=== PATIENT | male | born 1945 | race Caucasian/White ===

== ENCOUNTER 2018-06-24 13:02 | Inpatient (IN) | payer MEDICARE, MEDICAID ==
[2018-06-24] MEDS ORDERED: Morphine 4 MG/ML VIAL ONE ×2 (14:07→19:02)
--- NOTE | 2018-06-24 14:45 | RAD ---
AP PELVIS 1 VIEW: Date: 06/24/18 HISTORY: Pain following a fall. FINDINGS: There are bilateral hip joint arthrosis changes. There is some cortical irregularity involving the dias perolateral aspect of the left femur, at the base of the femoral head. I cannot exclude the possibili ty that this represents a nondisplaced fracture. There is also some lucency through the lesser trocha nter and also the greater trochanter, which could conceivably represent nondisplaced fractures. The p dagmar proper appears intact. IMPRESSION: Bilateral hip joint arthrosis. Pelvis bony demineralization. Some irregular lucencies through the reg ion of the proximal left femur, including the femoral neck and intertrochanteric region, raising conc femi for fractures. Follow-up left hip CT scan is recommended for further assessment in this regard. POS: [facility]
--- NOTE | 2018-06-24 14:53 | RAD ---
2 VIEWS LEFT HIP: Date: 06/24/18 HISTORY: Left hip pain after a fall today. FINDINGS: There is left hip osteoarthritis. There is irregularity along the superior cortex of the femoral neck with lucency seen in the intertrochanteric region of left hip. A nondisplaced fracture cannot be exc luded based on this examination. Given patient's recent injury and severe hip pain, CT scan is recomm ended for confirmation of question fracture. There is no dislocation seen. Degenerative changes seen in the visualized lower lumbar spine. Vascular calcifications in the femoral arteries. IMPRESSION: Lucency overlying the intertrochanteric region left hip. A nondisplaced intertrochanteric left hip fr acture is a possibility, and there is also irregularity in the region of the femoral neck. CT scan le ft hip is recommended for further evaluation. Above findings discussed with RAMANDEEP Hood, in the emergency department on 06/24/18 at 1423 hour s. CODE CR. POS: [facility]
--- NOTE | 2018-06-24 14:55 | CT ---
LEFT HIP CT SCAN WITHOUT IV CONTRAST: Date: 06/24/18 HISTORY: Left hip pain with concern for fracture on plain film evaluation. FINDINGS: There are fractures involving the left femoral neck, including the subcapital region, and also extend ing into the intertrochanteric region, without significant displacement. Arthrosis and degenerative c hanges of the left hip joint. Bony demineralization. IMPRESSION: Proximal left femoral fracture/fractures including the femoral neck and extending into the intertroch anteric region without significant malalignment. POS: [facility]
[2018-06-24 15:13] LABS: #Eosinphils 0.1 thou/uL (0.0-0.7); #Lymphocytes 1.1 thou/uL (1.20-3.40); #Monocytes 0.5 thou/uL (0.11-0.59); #Neutrophils 11.5 thou/uL (1.40-6.50); %Basophils 0.1 % (0.0-1.0); %Eosinophils 0.7 % (0.0-10.0); %Lymphocytes 8.2 % (21.0-51.0); %Monocytes 4.1 % (0.0-10.0); %Neutrophils 86.9 % (42.0-75.0); Hemoglobin 11.7 g/dL (14.0-18.0); Mean Corpuscular HGB CONC 33.4 g/dL (32.0-36.0); Mean Corpuscular Hemoglobin 30.7 pg (27.0-31.0); Mean Platelet Volume 8.9 fL (7.4-10.4); Platelet Count 141 thou/uL (130-400); RBC Distribution Width 12.2 % (11.5-14.5); Red Blood Cell (RBC) Count 3.81 mill/uL (4.70-6.10); White Blood Cell (WBC) Count 13.2 thou/uL (4.8-10.8)
[2018-06-24 15:33] LABS: ALT (SGPT) 10 U/L (8-55); AST (SGOT) 12 U/L (5-34); Alkaline Phosphatase 62 U/L (40-150); Anion Gap 15 mmol/L (10-20); BUN (Urea Nitrogen) 19 mg/dL (8.4-25.7); Bilirubin, Total Less than 0.2 mg/dL (0.2-1.2); Calc. Creatinine Clearance 0 mL/min (70-130); Calcium 8.6 mg/dL (7.8-10.44); Carbon Dioxide 23 mmol/L (23-31); Chloride 104 mmol/L (98-107); Estimated GFR-MDRD Greater than 90; Globulin 2.8 g/dL (2.4-3.5); Glucose 105 mg/dL (83-110); Potassium 4.4 mmol/L (3.5-5.1); Protein, Total 6.8 g/dL (5.8-8.1); Sodium 138 mmol/L (136-145)
--- NOTE | 2018-06-24 15:48 | RAD ---
PORTABLE CHEST ONE VIEW: Date: 06-24-18 Time: 2:47 p.m. History: Pre-operative evaluation. FINDINGS: The heart size is normal. There is a left sided pacemaker device. No focal areas of consolidation, pn eumothoraces or pleural effusions are seen. IMPRESSION: No radiographic evidence of acute cardiopulmonary process. POS: [facility]
[2018-06-24] MEDS ORDERED: Fentanyl 100 MCG/2 ML VIAL ONE (16:06)
[2018-06-24] MEDS ORDERED: Dextrose 50% Abboject 50 ML SYRINGE SLOW IVP PRN (16:47)
[2018-06-24] MEDS ORDERED: traMADol HCl 50 MG TAB PO PRN (16:47)
[2018-06-24] MEDS ORDERED: hydrALAZINE 20 MG/ML VIAL SLOW IVP PRN (16:47)
[2018-06-24] MEDS ORDERED: Ondansetron PF 4 MG/2 ML Vial IVP PRN (16:47)
[2018-06-24] MEDS ORDERED: Dextrose 5% in Water 1,000 ML IV PRN (16:47)
[2018-06-24 17:01] VITALS: BMI 28.4
--- NOTE | 2018-06-24 18:44 | HP ---
TRAUMA SURGEON: Ebenezer Kendrick DO. CONSULTING PHYSICIAN: Dr. Sosa, Orthopedic Surgery. HISTORY OF PRESENT ILLNESS: Mr. Olivera is a 73-year-old male patient, who presented to the emergency department after a mechanical fall from standing at his nursing facility. He is not on any anticoagulation and denies loss of consciousness. He reports using the table to stand up from a seated position. At that time, the table started to roll away and he fell onto his left side. He denies striking his head. He was brought to the emergency department for evaluation, where he received an x-ray of the left hip, x-ray of the pelvis, CT of the left lower extremity as well as a chest x-ray. His imaging demonstrated that he had a left femoral neck fracture. Dr. Sosa with Orthopedic Surgery was consulted, who recommended the patient be taken to the OR tomorrow. Trauma Surgery was consulted for admission and medical management of the patient. The patient denies loss of consciousness, nausea, vomiting, and diarrhea. REVIEW OF SYSTEMS: All additional review of systems was negative except as indicated in the HPI. PAST MEDICAL HISTORY: Diabetes, CHF, and a pacemaker. PAST SURGICAL HISTORY: Pacemaker placement. SOCIAL HISTORY: The patient denies tobacco, alcohol, and drug abuse. MEDICATIONS: 1. Lactobacillus acidophilus. 2. Aspirin. 3. Digoxin. 4. Ditropan. 5. Glipizide. 6. Januvia. 7. Ranitidine. 8. Risperdal. 9. Bisacodyl. 10. Colace. 11. Depakote. 12. Lantus. 13. Mag-Ox. 14. NovoLog. 15. MiraLAX. 16. Primidone. 17. Gabapentin. 18. Simvastatin. 19. Sinemet. 20. Zoloft. ALLERGIES: THE PATIENT IS ALLERGIC TO MUSHROOMS, PORK, AND PENICILLIN. PHYSICAL EXAMINATION: VITAL SIGNS: Temperature 98.7, pulse 84, respirations 14, oxygen saturation 95 % on room air, blood pressure 164/68. PRIMARY ASSESSMENT: Airway intact. Adequate breath sounds bilaterally. 2+ distal pulses palpable in the radials, femorals, and DP/PT bilaterally. GCS is 15. Gross motor and sensation intact. No lacerations, bruising, or external bleeding. SECONDARY ASSESSMENT: HEAD: Normocephalic, atraumatic. No gross palpable neck deformities or tenderness. EYES: Pupils are 3 to 2, equal, round, reactive to light, tracking. ENT: No hemotympanum, no epistaxis, no septal hematoma. Midface is stable to palpation. No blood in the oropharynx. Dentition intact. No anterior neck injury/crepitus/tenderness. C-SPINE: No step-offs or deformities, nontender, no C-collar in place. CHEST: Nontender, no crepitus, no abrasions/ecchymoses. Equal chest rise and fall. ABDOMEN: Soft, nontender, nondistended. PELVIS: Stable. Nontender. No abrasions/ecchymoses. RECTAL: Deferred. GENITOURINARY: Deferred. EXTREMITIES: Left lower extremity shortened and rotated. No abrasions or ecchymosis noted. No external signs of bleeding. 2+ radial/femoral/DP/PT pulses present bilaterally. BACK/SPINE: No step-offs/deformities or tenderness to palpation of the thoracic/lumbar spine. No abrasions/ecchymosis noted. NEURO: 5/5 strength in bilateral strategic sourcing specialist and plantar/dorsiflexion of the right lower extremity, 4/5 strength in the left lower extremity. Gross motor and sensation intact x4 extremities. LABORATORY DATA: White blood cell count 13.2, hemoglobin 11.7, hematocrit 35.0, platelets 141. Sodium 138, potassium 4.4, chloride 104, carbon dioxide 23, BUN 19, creatinine 0.86, glucose 105. DIAGNOSTIC DATA: Chest x-ray demonstrates no radiographic evidence of acute cardiopulmonary process. X-ray of the left hip demonstrates overlying the intertrochanteric region of the left hip, a nondisplaced intertrochanteric left hip fracture is a possibility and there is also irregularity on the region of the femoral neck. CT scan left hip is recommended for further evaluation. X-ray of the pelvis demonstrates bilateral hip joint arthrosis, pelvis bony demineralization. Some irregularity lucencies through the region of the proximal left femur including the femoral neck and the intertrochanteric region, rising concern for fracture. Followup left hip CT scan is recommended for further assessment in this region. CT scan of the left lower extremity demonstrates proximal left femoral fracture/fractures involving the femoral neck and extending into the intertrochanteric region without significant malalignment. ASSESSMENT: 1. Status post mechanical fall from standing. 2. Left femoral neck/intertrochanteric fracture. 3. Acute traumatic pain. 4. History of congestive heart failure, pacemaker, and diabetes. PLAN: The patient will be admitted to the Trauma Service and Dr. Sosa with Orthopedic Surgery will take the patient to the operating room tomorrow. We will start the patient on pain medication regimen and give him a diabetic diet. After midnight, he will be n.p.o. We will hold all of his home medications except for digoxin, which will be restarted with hold parameters in the morning. He will receive insulin sliding scale for glucose control. DVT prophylaxis will be held for the OR. Physical and Occupational Therapy have been consulted and will see the patient after fixation of the left femur. The patient was seen and examined by Dr. Kendrick and myself this afternoon in the emergency department. Job ID: [id number] MTDD
[2018-06-24] MEDS: Morphine 4 MG/ML VIAL SLOW IVP PRN ×2 (19:06→21:26)
[2018-06-24] MEDS ORDERED: Acetaminophen 500 MG TAB ONE ×2 (19:09→19:15)
[2018-06-24] MEDS: Acetaminophen 500 MG TAB PO SCH ×2 (19:10→20:53)
[2018-06-24] MEDS: Famotidine 20 MG TAB PO SCH (21:27)
[2018-06-24] MEDS: Senokot S 8.6-50 MG TAB PO SCH (21:27)
[2018-06-24] MEDS ORDERED: Carbidopa/Levodopa CR 50-200 mg Tablet PO SCH (22:30)
--- NOTE | 2018-06-25 01:03 | CON ---
DATE OF CONSULTATION: CHIEF COMPLAINT: Left hip pain. HISTORY OF PRESENT ILLNESS: Mr. Olivera is a 73-year-old male who lives in a nursing facility. He reports that over the last three months he has lost the ability to ambulate any distance. He does arise out of bed and transfers himself to a chair, but this is minimal as well. He requires assistance. He has not been working with physical therapy lately. He lost his balance when transferring today. He fell. He landed on his left side. He had immediate pain. He was unable to arise. He was taken to the emergency department by EMS. X-rays were obtained as well as a CT scan which demonstrated intertrochanteric fracture of the left femur with extension into the femoral neck. He has been given pain medication. I was consulted regarding his hip injury. PAST MEDICAL HISTORY: Includes anxiety and depression, diabetes, hyperlipidemia, peptic ulcer disease, osteoarthritis, and history of dementia as well as generalized deconditioning. PAST SURGICAL HISTORY: Includes previous left shoulder arthroscopic surgery and cataract surgery. He has also had cardiac ablation type procedure in 2012. SOCIAL HISTORY: The patient lives in [facility]. He denies any tobacco, alcohol, or drug use. ALLERGIES: NO KNOWN DRUG ALLERGIES. FAMILY MEDICAL HISTORY: Noncontributory. REVIEW OF SYSTEMS: Positive for left hip pain. Otherwise, negative 10 point review of systems. PHYSICAL EXAMINATION: VITAL SIGNS: Temperature is 98.7, pulse is 84, respiratory rate 14, oxygen saturation 95% on room air, blood pressure is 164/68. GENERAL: He is lying supine. He is alert. He is oriented, in no apparent distress. He answers questions appropriately. HEENT: Normocephalic and atraumatic. RESPIRATORY: Breathing comfortably. ABDOMEN: Soft, nontender, nondistended. CARDIOVASCULAR: Pulses palpable and regular. MUSCULOSKELETAL: The patient's left lower extremity has pain with motion. He has swelling about his thigh. He has no skin laceration. No significant ecchymosis. He has the ability to flex and extend the foot and ankle. Palpable pulses distally. LABORATORY STUDIES: Hemoglobin 11.7, hematocrit 35.0. Electrolytes are within normal limits. IMAGING: CT scan and left hip x-rays demonstrate intertrochanteric femur fracture with extension into the base cervical region of the femoral neck. Fracture is nondisplaced. IMPRESSION: Left intertrochanteric femur fracture in an elderly male. PLAN: At this point, I had a long discussion with the patient regarding his treatment options. He is essentially nonambulatory, although he does get out of bed to transfer to a chair. He has been deconditioned over the last several months. I gave him the option of surgical intervention for pain relief and to hopefully allow him to mobilize out of bed with assistance versus nonoperative treatment. He wants to pursue operative treatment if this is deemed reasonable risk so that he can have pain relief as well as earlier mobilization. I think this is reasonable. I think he would experience decreased pain with stabilization of his fracture. I will plan for this tomorrow. He will have medical optimization tonight. Pain control, DVT prophylaxis, and antibiotic prophylaxis. Job ID: [id number]
[2018-06-25] MEDS: Morphine 4 MG/ML VIAL SLOW IVP PRN ×3 (01:22→07:07)
[2018-06-25] MEDS: Acetaminophen 500 MG TAB PO SCH ×2 (04:43→18:24)
[2018-06-25 06:20] LABS: INR-International Normal Ratio 1.1; PTT 34.1 SEC (22.9-36.1); Prothrombin Time 13.9 SEC (12.0-14.7)
[2018-06-25 06:27] LABS: #Eosinphils 0.1 thou/uL (0.0-0.7); #Lymphocytes 2.4 thou/uL (1.20-3.40); #Monocytes 0.8 thou/uL (0.11-0.59); #Neutrophils 6.9 thou/uL (1.40-6.50); %Basophils 0.2 % (0.0-1.0); %Eosinophils 0.9 % (0.0-10.0); %Lymphocytes 23.4 % (21.0-51.0); %Monocytes 7.9 % (0.0-10.0); %Neutrophils 67.7 % (42.0-75.0); Hemoglobin 12.3 g/dL (14.0-18.0); Mean Corpuscular HGB CONC 33.4 g/dL (32.0-36.0); Mean Corpuscular Hemoglobin 30.9 pg (27.0-31.0); Mean Corpuscular Volume 92.4 fL (78.0-98.0); Mean Platelet Volume 8.7 fL (7.4-10.4); Platelet Count 158 thou/uL (130-400); RBC Distribution Width 12.4 % (11.5-14.5); Red Blood Cell (RBC) Count 3.99 mill/uL (4.70-6.10); White Blood Cell (WBC) Count 10.1 thou/uL (4.8-10.8)
[2018-06-25 06:36] LABS: BUN (Urea Nitrogen) 14 mg/dL (8.4-25.7); Calc. Creatinine Clearance 110 mL/min (70-130); Calcium 9.4 mg/dL (7.8-10.44); Chloride 102 mmol/L (98-107); Estimated GFR-MDRD Greater than 90; Magnesium 2.1 mg/dL (1.6-2.6); Phosphorus 4.2 mg/dL (2.3-4.7); Potassium 4.1 mmol/L (3.5-5.1); Sodium 139 mmol/L (136-145)
[2018-06-25 06:40] LABS: Carbon Dioxide 26 mmol/L (23-31)
[2018-06-25 06:42] LABS: Anion Gap 15 mmol/L (10-20); Glucose 47 mg/dL (83-110)
[2018-06-25] MEDS ORDERED: Dextrose 5 %-0.45 % NaCl 1,000 ML IV SCH (07:00)
[2018-06-25] MEDS ORDERED: Polyethylene Glycol 3350 17 GM Packet PO SCH (09:00)
[2018-06-25] MEDS ORDERED: PHENYLEPHRINE-NS 100 MCG/ML 10 ML SYRINGE ONE (10:17)
[2018-06-25] MEDS ORDERED: Succinylcholine Chloride 20 MG/ML 10 ml SYRINGE FS ONE (10:17)
[2018-06-25] MEDS ORDERED: PROPOFOL 200 MG/20 ML VIAL ONE (10:17)
[2018-06-25] MEDS ORDERED: Ondansetron PF 4 MG/2 ML Vial ONE (10:17)
[2018-06-25] MEDS ORDERED: Lidocaine 1% PF 5 ML VIAL ONE (10:17)
[2018-06-25] MEDS: Digoxin 0.125 MG TAB PO SCH (10:33)
[2018-06-25] MEDS ORDERED: Ketorolac Tromethamine 30 MG/ML VIAL ONE (11:16)
[2018-06-25] MEDS ORDERED: Ketorolac Tromethamine 15 MG/ML VIAL IVP ONE (11:17)
[2018-06-25] MEDS ORDERED: Ketorolac Tromethamine 15 MG/ML VIAL IVP PRN (11:17)
[2018-06-25] MEDS: Senokot S 8.6-50 MG TAB PO SCH ×2 (11:25→21:59)
[2018-06-25] MEDS: Gabapentin 300 MG CAP PO SCH ×2 (11:26→21:59)
[2018-06-25] MEDS: Carbidopa/Levodopa CR 50-200 mg Tablet PO SCH ×4 (11:26→21:52)
[2018-06-25] MEDS: Divalproex Sodium 125 mg Sprinkle Capsule PO SCH ×2 (11:26→21:55)
[2018-06-25] MEDS: Famotidine 20 MG TAB PO SCH ×2 (11:26→21:59)
[2018-06-25] MEDS: Acetaminophen 1,000 MG in Premix Bag 1 BAG IVPB SCH ×2 (11:27→17:37)
[2018-06-25] MEDS ORDERED: Ketorolac Tromethamine 30 MG/ML VIAL IVP SCH (11:30)
[2018-06-25] MEDS ORDERED: Ketorolac Tromethamine 15 MG/ML VIAL IVP SCH (12:00)
[2018-06-25] MEDS ORDERED: Clindamycin/D5W 900 MG in Premix Bag 1 BAG IVPB SCH (12:00)
[2018-06-25] MEDS ORDERED: Clindamycin/D5W 900 mg/50 ml Premix Bag ONE (12:20)
[2018-06-25] MEDS ORDERED: CEFAZOLIN 2 GM/50 ML BAG IVPB SCH (13:00)
[2018-06-25] MEDS ORDERED: Fentanyl 100 MCG/2 ML VIAL ONE ×2 (13:04→15:06)
--- NOTE | 2018-06-25 13:21 | RAD ---
LEFT FOOT 3 VIEWS: INDICATION: Fall with leg pain. FINDINGS: There is diffuse osteopenia. There is surface artifact from overlying socks that limits detail. The re is scattered osteoarthrosis of the left foot. The toes are held in flexion slightly limiting the exam. No definite acute fracture is evident. IMPRESSION: Limitation of exam. No definite acute osseous abnormality. POS: [facility]
--- NOTE | 2018-06-25 13:34 | PRG ---
DATE OF SERVICE: 06/25/2018 SUBJECTIVE: The patient is a 73-year-old male who reported after a mechanical fall from standing with a left femoral neck and intercurrent trochanteric femur fracture. He was admitted to the hospital yesterday evening. This morning on examination, he reported significant pain and was lying on his right side. He reported he had not received pain medications for several hours, although he had requested medication from nursing. At that time, the patient received IV Tylenol and IV Toradol per the instructions of Dr. Kendrick. He is n.p.o. for the OR today with Dr. Sosa, Orthopedic Surgery. On a tertiary exam, he reported he had tenderness to the anterior surface of the left foot. There were no external signs of trauma. Overnight, he did have an episode of hypoglycemia with a glucose of 74. He did not have IV access at that time and received an IM Glucagon shot and his glucose increased to 70. At that time, D5 half-normal saline at 75 an hour was started. PHYSICAL EXAMINATION: VITAL SIGNS: Temperature 97.5, pulse 85, respirations 18, oxygen saturation 95% . Blood pressure 121/73. GENERAL: Alert, elderly male, lying on the right side with signs of distress. NEURO: GCS is 15. Alert and oriented x3. Gross motor and sensation intact. Pupils equal, round, reactive to light. PULMONARY: No signs of acute distress. Equal chest rise and fall. Lung jeronimo clear bilaterally. HEART: Regular rate and rhythm. No murmurs, gallops, or rubs. ABDOMEN: Soft, nontender, nondistended with positive bowel sounds. EXTREMITIES: Motor and sensation intact. 2+ pulses in all extremities. No swelling noted. Pain to left lateral thigh and hip as well as tenderness to palpation over the anterior aspect of the left foot. No other external signs of trauma. LABORATORY FINDINGS: White blood cell count 10.1, hemoglobin 12.3, hematocrit 36.9, platelets 158. INR 1.1. Sodium 138, potassium 4.1, chloride 102, carbon dioxide 26, BUN 14, creatinine 0.78, glucose 97, phos 4.2, magnesium 2.1. DIAGNOSTIC FINDINGS: There are no diagnostic findings to report at this time, but an x-ray of the left foot is pending. ASSESSMENT: 1. Status post mechanical fall from standing. 2. Left femoral neck/intertrochanteric femur fracture. 3. Acute traumatic pain. 4. History of congestive heart failure, pacemaker, and diabetes. PLAN: The patient was scheduled for 1 g of IV Tylenol q.6 hours. He also has tramadol p.r.n. for pain as well as morphine for breakthrough pain. He can get ibuprofen for mild pain. He is pending OR today with Dr. Sosa for fixation of his left femur fracture. He is still n.p.o. with D5 half-normal saline at 75 an hour. We will follow up x-ray of left foot for injury. Will receive physical and occupational therapy, postoperatively, home gabapentin, oxybutynin, Sinemet, Depakote, Risperdal, Zoloft, and simvastatin were restarted preoperatively. The patient was seen and examined by Dr. Kendrick and myself this morning during rounds. Job ID: [id number] MTDD
[2018-06-25] MEDS ORDERED: Ondansetron HCl/PF 4 MG/2 ML Vial IVP PRN (14:35)
[2018-06-25] MEDS ORDERED: Promethazine HCl 25 MG/ML VIAL IM PRN (14:35)
[2018-06-25] MEDS ORDERED: Promethazine HCl 25 MG/ML VIAL SLOW IVP PRN (14:35)
--- NOTE | 2018-06-25 15:27 | OP ---
DATE OF PROCEDURE: 06/25/2018 PROCEDURE PERFORMED: Dynamic hip screw fixation of left proximal femur. PREOPERATIVE DIAGNOSIS: Left intertrochanteric femur fracture. POSTOPERATIVE DIAGNOSIS: Left intertrochanteric femur fracture. COMPLICATIONS: None. ESTIMATED BLOOD LOSS: 200 mL. LOGISTICS/SHIPPER: Asa Jama PA-C. IMPLANTS: Synthes 4-hole 140 degree dynamic hip screw and plate. INDICATIONS: Mr. Olivera is a 73-year-old male, who fell. He fractured his left proximal femur. He was indicated for stabilization of the fracture for pain relief. The patient transfers from the bed but minimally ambulates. Main goal of surgery is not to promote ambulation but for pain relief. I have reviewed this with him in detail. He is at risk for complications with surgery. He wants to proceed. DESCRIPTION OF PROCEDURE: Mr. Olivera was identified in the preoperative holding area. His correct extremity was marked. He was carried to the operating room. He was positioned supine. General anesthesia was induced. A multidisciplinary time-out was performed. The left lower extremity was prepped and draped in sterile fashion. We placed the patient on the fracture table. At this point, his left hip was evaluated with intraoperative x-ray. We pulled gentle traction on the leg and the fracture was well reduced. At this point, we began the procedure with a lateral incision. We dissected down through the subcutaneous tissues to the bony level. We then inserted a guidewire to the center position of the femoral head. At this point, we overdrilled the guidewire. We then placed our central screw. Next, we impacted a 4-hole DHS plate. Four screws were placed in the plate through the shaft of the bone. Took final x-ray images in orthogonal planes. We then thoroughly irrigated and closed with 0 Vicryl suture, 2-0 Vicryl suture, and adrian for the skin. A sterile dressing was applied. The patient was taken to the recovery room in good condition without complication. Job ID: [id number]
--- NOTE | 2018-06-25 15:37 | RAD ---
LEFT HIP 3 VIEWS: INDICATION: History of left hip fracture. FLUOROSCOPIC TIME: 76.7 seconds. TOTAL EXPOSURE: 11.84 mGy. FINDINGS: Since the comparison examination, there has been reduction and placement of a hip screw and side plat e across the patient's left basicervical femoral neck/intratrochanteric hip fracture. IMPRESSION: Open reduction internal fixation of the left hip. POS: [facility]
[2018-06-25] MEDS ORDERED: OXYBUTYNIN CHLORIDE 10 MG PO SCH (21:00)
[2018-06-25] MEDS ORDERED: Non-Formulary Item 1 EACH (Simvastatin [Simvastatin] 80 MG) PO SCH (21:00)
[2018-06-25] MEDS: Atorvastatin Calcium 20 MG TAB PO SCH (21:46)
[2018-06-25] MEDS: risperiDONE 0.25 MG TAB PO SCH (21:57)
[2018-06-25] MEDS: Oxybutynin ER 5 MG TAB PO SCH (21:58)
[2018-06-25] MEDS: traMADol HCl 50 MG TAB PO PRN (22:13)
[2018-06-25] MEDS: Clindamycin/D5W 900 MG in Premix Bag 1 BAG IVPB SCH (22:26)
[2018-06-26] MEDS: Clindamycin/D5W 900 MG in Premix Bag 1 BAG IVPB SCH (06:18)
[2018-06-26] MEDS: Acetaminophen 1,000 MG in Premix Bag 1 BAG IVPB SCH ×2 (06:18)
[2018-06-26] MEDS: Ibuprofen 600 MG TAB PO PRN (06:48)
[2018-06-26 07:02] LABS: #Eosinphils 0.1 thou/uL (0.0-0.7); #Lymphocytes 1.5 thou/uL (1.20-3.40); #Monocytes 0.8 thou/uL (0.11-0.59); #Neutrophils 6.8 thou/uL (1.40-6.50); %Basophils 0.1 % (0.0-1.0); %Eosinophils 1.3 % (0.0-10.0); %Monocytes 8.2 % (0.0-10.0); %Neutrophils 74.5 % (42.0-75.0); Hemoglobin 9.8 g/dL (14.0-18.0); Mean Corpuscular HGB CONC 33.7 g/dL (32.0-36.0); Mean Corpuscular Volume 91.9 fL (78.0-98.0); Mean Platelet Volume 8.8 fL (7.4-10.4); Platelet Count 132 thou/uL (130-400); RBC Distribution Width 12.3 % (11.5-14.5); Red Blood Cell (RBC) Count 3.15 mill/uL (4.70-6.10); White Blood Cell (WBC) Count 9.2 thou/uL (4.8-10.8)
[2018-06-26 07:26] LABS: Anion Gap 13 mmol/L (10-20); BUN (Urea Nitrogen) 15 mg/dL (8.4-25.7); Calc. Creatinine Clearance 97 mL/min (70-130); Calcium 8.6 mg/dL (7.8-10.44); Carbon Dioxide 26 mmol/L (23-31); Chloride 100 mmol/L (98-107); Estimated GFR-MDRD 84; Glucose 142 mg/dL (83-110); Magnesium 1.9 mg/dL (1.6-2.6); Potassium 4.5 mmol/L (3.5-5.1); Sodium 134 mmol/L (136-145)
[2018-06-26] MEDS: Famotidine 20 MG TAB PO SCH ×2 (09:28→21:40)
[2018-06-26] MEDS: Divalproex Sodium 125 mg Sprinkle Capsule PO SCH ×2 (09:28→21:36)
[2018-06-26] MEDS: Aspirin 81 mg Enteric Coated Tablet PO SCH ×2 (09:28→21:40)
[2018-06-26] MEDS: Gabapentin 300 MG CAP PO SCH ×2 (09:29→21:36)
[2018-06-26] MEDS: Carbidopa/Levodopa CR 50-200 mg Tablet PO SCH ×4 (09:29→21:39)
[2018-06-26] MEDS: Digoxin 0.125 MG TAB PO SCH (09:30)
[2018-06-26] MEDS: Senokot S 8.6-50 MG TAB PO SCH ×2 (09:30→21:36)
[2018-06-26] MEDS: Polyethylene Glycol 3350 17 GM Packet PO SCH (09:37)
[2018-06-26] MEDS ORDERED: Sodium Chloride 0.9% 500 ML IV SCH (10:45)
--- NOTE | 2018-06-26 12:15 | PRG ---
DATE OF SERVICE: 06/26/2018 SUBJECTIVE: The patient is hospital day 2, postop day 1, status post ground level fall, in which he sustained a left femoral neck fracture. The patient has undergone operative procedure by Orthopedics to repair this. He tolerated it well. This morning, it was noted that he had an episode of hypotension when working with Physical and Occupational therapy, so he was given 500 mL bolus of normal saline. Otherwise, he had an uneventful night. His pain is controlled and he has tolerated a diet this morning. PHYSICAL EXAMINATION: VITAL SIGNS: Temperature is 99.6, heart rate 93, blood pressure 81/58, respirations 18, oxygen saturation 93% on room air. GENERAL: The patient is resting comfortably in bed. He appears at his baseline and is appropriate. HEENT: Unremarkable. LUNGS: Clear to auscultation with good inspiratory and expiratory effort. HEART: Regular rate and rhythm. ABDOMEN: Soft, flat, nontender with active bowel sounds. EXTREMITIES: Neurovascularly intact x4. Postop dressing is clean, dry, and intact. LABORATORY FINDINGS: White blood cell count 9.2, hemoglobin 9.8, hematocrit 29.0, platelets 132. Sodium 134, potassium 4.5, chloride 100, CO2 of 26, BUN 15, creatinine 0.89, glucose 142, magnesium 1.9, phosphorus 5.0. There are no x-rays to review this morning. ASSESSMENT: 1. Status post mechanical fall. 2. Status post open reduction and internal fixation of left hip fracture. 3. Acute blood loss anemia. 4. History of congestive heart failure, pacemaker, and diabetes. PLAN: Plan will be to continue supportive care, physical and occupational therapy. We will recheck his vitals after his bolus and repeat his labs in the morning. The patient will likely be able to return to his facility tomorrow, Saturday at the latest. Job ID: [id number]
[2018-06-26] MEDS: Acetaminophen 500 MG TAB PO SCH ×3 (12:48→23:55)
[2018-06-26] MEDS: HumaLOG 300 UNITS/3 ML VIAL SC PRN ×2 (12:49→18:21)
--- NOTE | 2018-06-26 15:55 | PQF ---
HYVL,ALPA RUDOLPH MD [id number] SURG A- [id number] CLINICAL DOCUMENTATION IMPROVEMENT CLARIFICATION FORM: ICD-10 Updated PLEASE DO AN ADDENDUM TO THE PROGRESS NOTE WITH ANY DOCUMENTATION UPDATES OR ADDITIONS AND CARRY THROUGH TO DC SUMMARY. THANK YOU. DATE: 06/26/2018 ATTN: DR. [place]/ ANTHONY MARAVILLA Please exercise your independent, professional judgment in responding to the clarification form. Clinical indicators are provided on the bottom of this form for your review Please check appropriate box(s)...... HEART FAILURE A. TYPE: [ ] Systolic / HFrEF [ ] Diastolic / HFpEF [ ] Combined Systolic / Diastolic B. ACUITY: [ ] Acute [ ] Acute on Chronic [ X ] Chronic [ ] Other diagnosis [ X ] Unable to determine For continuity of documentation, please document condition throughout progress notes and discharge summary. Thank You. CLINICAL INDICATORS - SIGNS / SYMPTOMS / LABS: 06/24-H&P: History: DIABETES, CHF AND PACEMAKER. 06/26-GHASSAN: HISTORY OF CONGESTIVE HEART FAILURE, PACEMAKER, AND DIABETES. RISKS: Diabetes Advanced Age TREATMENTS: Continue home meds that include DIGOXIN Presence of Pacemaker Thank You, Claritza (This form is maintained as a part of the permanent medical record) 2015 [employer]. All Rights Reserved Claritza Cardona RN, CDIS [email or web address] [phone] MTDD
[2018-06-26] MEDS: traMADol HCl 50 MG TAB PO PRN (21:34)
[2018-06-26] MEDS: Atorvastatin Calcium 20 MG TAB PO SCH (21:39)
[2018-06-26] MEDS: Oxybutynin ER 5 MG TAB PO SCH (21:39)
[2018-06-26] MEDS: risperiDONE 0.25 MG TAB PO SCH (21:41)
[2018-06-27] MEDS: traMADol HCl 50 MG TAB PO PRN (04:07)
[2018-06-27] MEDS: Acetaminophen 500 MG TAB PO SCH (05:31)
[2018-06-27 07:04] LABS: #Eosinphils 0.1 thou/uL (0.0-0.7); #Lymphocytes 1.1 thou/uL (1.20-3.40); #Monocytes 0.4 thou/uL (0.11-0.59); #Neutrophils 4.3 thou/uL (1.40-6.50); %Basophils 0.2 % (0.0-1.0); %Eosinophils 1.4 % (0.0-10.0); %Lymphocytes 18.5 % (21.0-51.0); %Monocytes 7.4 % (0.0-10.0); %Neutrophils 72.6 % (42.0-75.0); Hemoglobin 8.2 g/dL (14.0-18.0); Mean Corpuscular HGB CONC 34.3 g/dL (32.0-36.0); Mean Corpuscular Hemoglobin 31.4 pg (27.0-31.0); Mean Corpuscular Volume 91.3 fL (78.0-98.0); Mean Platelet Volume 8.9 fL (7.4-10.4); Platelet Count 95 thou/uL (130-400); RBC Distribution Width 12.1 % (11.5-14.5); White Blood Cell (WBC) Count 5.9 thou/uL (4.8-10.8)
[2018-06-27 07:23] LABS: Anion Gap 11 mmol/L (10-20); BUN (Urea Nitrogen) 14 mg/dL (8.4-25.7); Calc. Creatinine Clearance 113 mL/min (70-130); Calcium 8.5 mg/dL (7.8-10.44); Carbon Dioxide 27 mmol/L (23-31); Chloride 102 mmol/L (98-107); Estimated GFR-MDRD Greater than 90; Glucose 150 mg/dL (83-110); Phosphorus 3.8 mg/dL (2.3-4.7); Potassium 4.5 mmol/L (3.5-5.1); Sodium 135 mmol/L (136-145)
[2018-06-27 08:13] VITALS: BP 125/78; TEMP 98.7
[2018-06-27] MEDS: Senokot S 8.6-50 MG TAB PO SCH (08:33)
[2018-06-27] MEDS: Ibuprofen 600 MG TAB PO PRN (08:35)
[2018-06-27] MEDS: Aspirin 81 mg Enteric Coated Tablet PO SCH (08:35)
[2018-06-27] MEDS: Gabapentin 300 MG CAP PO SCH (08:36)
[2018-06-27] MEDS: Divalproex Sodium 125 mg Sprinkle Capsule PO SCH (08:36)
[2018-06-27] MEDS: Digoxin 0.125 MG TAB PO SCH (08:36)
[2018-06-27] MEDS: Carbidopa/Levodopa CR 50-200 mg Tablet PO SCH (08:37)
[2018-06-27] MEDS: Famotidine 20 MG TAB PO SCH (08:42)
[2018-06-27] MEDS: Polyethylene Glycol 3350 17 GM Packet PO SCH (08:42)
--- NOTE | 2018-06-27 12:09 | DIS ---
DATE OF ADMISSION: 06/24/2018 DATE OF DISCHARGE: 06/27/2018 ADMISSION DIAGNOSES: 1. Status post ground level fall. 2. Left femoral neck/intertrochanteric femur fracture. 3. Acute traumatic pain. 4. History of congestive heart failure, pacemaker, and diabetes. CONSULTATIONS: Orthopedics, Dr. Sosa. PROCEDURES: Open reduction and internal fixation of left intertrochanteric femur fracture. HOSPITAL COURSE: The patient is a 73-year-old man, who reportedly had a fall from standing at his nursing facility. The patient was brought to the emergency department, where he underwent evaluation and examination and was noted to have the above injuries. He was able to be taken to the operating room to undergo the open reduction and internal fixation, which he tolerated well. The patient will work with Physical and Occupational Therapy. At the time of discharge, he was tolerating a diet, his pain was controlled, and again he was working with Physical and Occupational Therapy. [facility]. He will follow up with Dr. Sosa in 10 to 14 days or sooner as needed. The patient may follow up with the Trauma Clinic if needed. Job ID: [id number]
== END 2018-06-27 11:26 | DRG 481 ==
LOC: ERS 13:02 → ERHOLD 16:48 → SURG A 20:20
PROVIDERS: ADMIT Surgery; ATTEND Surgery
PROC: 0QS734Z Reposition Left Upper Femur with Internal Fixation Device, Percutaneous Approach (ICD-10-PCS; principal; 2018-06-25)
DX: S72.142A Displaced intertrochanteric fracture of left femur, initial encounter for closed fracture (principal); D62 Acute posthemorrhagic anemia; S72.092A Other fracture of head and neck of left femur, initial encounter for closed fracture; Z95.0 Presence of cardiac pacemaker; I50.9 Heart failure, unspecified; E11.9 Type 2 diabetes mellitus without complications; E78.5 Hyperlipidemia, unspecified; M19.90 Unspecified osteoarthritis, unspecified site; F03.90 Unspecified dementia, unspecified severity, without behavioral disturbance, psychotic disturbance, mood disturbance, and anxiety; F41.8 Other specified anxiety disorders; Z79.82 Long term (current) use of aspirin; Z79.4 Long term (current) use of insulin; Z88.0 Allergy status to penicillin; Z87.11 Personal history of peptic ulcer disease; W18.39XA Other fall on same level, initial encounter; Y92.129 Unspecified place in nursing home as the place of occurrence of the external cause
CPT/HCPCS: 36415; 36416; 71045; 72170; 76000; 80048; 80053; 83735; 84100; 85025; 85610; 85730; 96374; 96375; C1713; C1769; G0390; J0131; J1610; J1885; J2001; J2270; J2405; J2704; J3010; J3490

== ENCOUNTER 2018-10-14 12:38 | Observation (INO) | payer MEDICARE, MEDICAID ==
[2018-10-14] MEDS ORDERED: Clindamycin/D5W 900 mg/50 ml Premix Bag ONE (13:21)
[2018-10-14] MEDS ORDERED: Lidocaine 1% PF 5 ML VIAL ONE (13:31)
[2018-10-14] MEDS ORDERED: PROPOFOL 200 MG/20 ML VIAL ONE (13:31)
[2018-10-14] MEDS ORDERED: Rocuronium Bromide 10 MG/ML (10ML VIAL) ONE (13:31)
[2018-10-14] MEDS ORDERED: Ondansetron PF 4 MG/2 ML Vial ONE (13:31)
[2018-10-14] MEDS ORDERED: PHENYLEPHRINE-NS 100 MCG/ML 10 ML SYRINGE ONE (13:31)
[2018-10-14 13:41] LABS: #Eosinphils 0.1 thou/uL (0.0-0.7); #Lymphocytes 1.2 thou/uL (1.20-3.40); #Monocytes 0.4 thou/uL (0.11-0.59); #Neutrophils 6.6 thou/uL (1.40-6.50); %Basophils 0.1 % (0.0-1.0); %Eosinophils 1.6 % (0.0-10.0); %Lymphocytes 14.1 % (21.0-51.0); %Monocytes 5.2 % (0.0-10.0); Hemoglobin 11.1 g/dL (14.0-18.0); Mean Corpuscular Hemoglobin 29.4 pg (27.0-31.0); Mean Corpuscular Volume 88.9 fL (78.0-98.0); Mean Platelet Volume 8.2 fL (7.4-10.4); Platelet Count 183 thou/uL (130-400); RBC Distribution Width 12.2 % (11.5-14.5); Red Blood Cell (RBC) Count 3.78 mill/uL (4.70-6.10); White Blood Cell (WBC) Count 8.4 thou/uL (4.8-10.8)
[2018-10-14 14:01] LABS: Anion Gap 12 mmol/L (10-20); BUN (Urea Nitrogen) 12 mg/dL (8.4-25.7); Calc. Creatinine Clearance 0 mL/min (70-130); Calcium 9.2 mg/dL (7.8-10.44); Carbon Dioxide 30 mmol/L (23-31); Chloride 102 mmol/L (98-107); Estimated GFR-MDRD Greater than 90; Glucose 107 mg/dL (83-110); Potassium 4.6 mmol/L (3.5-5.1); Sodium 139 mmol/L (136-145)
[2018-10-14] MEDS ORDERED: Fentanyl 100 MCG/2 ML VIAL ONE (16:29)
[2018-10-14] MEDS ORDERED: Lidocaine 1% (PF) 30 ML VIAL ONE (16:30)
[2018-10-14] MEDS ORDERED: Diabetic Tussin 200 MG/10 ML UDCUP PO PRN (16:40)
[2018-10-14] MEDS ORDERED: Milk Of Magnesia 30 ML UDCUP PO PRN (16:40)
[2018-10-14] MEDS ORDERED: Nitroglycerin 0.4 MG TAB (25 Tab Bottle) SL PRN (16:40)
[2018-10-14] MEDS ORDERED: traMADol HCl 50 MG TAB PO PRN (16:45)
[2018-10-14] MEDS ORDERED: Ondansetron PF 4 MG/2 ML Vial IV PRN (16:45)
[2018-10-14] MEDS ORDERED: Bisacodyl 10 MG SUPP PR PRN (16:45)
[2018-10-14] MEDS ORDERED: Communication Order-Pharmacy FS SCH (16:45)
[2018-10-14] MEDS ORDERED: Fentanyl 100 MCG/2 ML VIAL SLOW IVP PRN (16:45)
[2018-10-14] MEDS ORDERED: HumaLOG 300 UNITS/3 ML VIAL SC SCH (17:00)
[2018-10-14] MEDS ORDERED: Glycerin Adult Supp. (12 ct jar) RC PRN (17:30)
[2018-10-14] MEDS ORDERED: Promethazine HCl 25 MG/ML VIAL IM PRN (18:01)
[2018-10-14] MEDS ORDERED: Promethazine HCl 25 MG/ML VIAL SLOW IVP PRN (18:01)
[2018-10-14] MEDS ORDERED: Ondansetron HCl/PF 4 MG/2 ML Vial IVP PRN (18:01)
--- NOTE | 2018-10-14 18:15 | OP ---
DATE OF PROCEDURE: 10/14/2018 PROCEDURE PERFORMED: Left proximal femur hardware removal. PREOPERATIVE DIAGNOSIS: History of left intertrochanteric femur fracture, now with painful hardware with intra-articular involvement. POSTOPERATIVE DIAGNOSIS: History of left intertrochanteric femur fracture, now with painful hardware with intra-articular involvement. COMPLICATIONS: None. ESTIMATED BLOOD LOSS: 50 mL. FLY FRAME TENDER: Cara Huerta PA-C. IMPLANTS: None. INDICATIONS: Mr. Olivera is a 73-year-old male, who fell recently and fractured the proximal femur. He was treated with dynamic hip screw placement. He healed his fracture; however, his femoral head screw has become prominent into the acetabulum and hip joint. He is having pain from this, especially with any movement. To preserve his hip and allow resolution of pain, I have indicated him for hardware removal. He is at risk for medical complication or surgical complication such as infection, pain, scarring, bleeding, and others. DESCRIPTION OF PROCEDURE: Mr. Olivera was identified in the preoperative holding area. His correct extremity was marked. He was carried to the operating room. He was positioned lateral after general anesthesia was induced. A multidisciplinary time-out was performed. The left lower extremity was prepped and draped in sterile fashion. We began the procedure with incising to the patient's scar. We dissected down through the subcutaneous tissues to the fascia, which was opened. We worked toward the deeply splitting the vastus lateralis. We identified the underlying plate. At this point, the plate was cleared of bone and soft tissues. We removed 4 screws from the plate. We then removed the central femoral head screw with the appropriate screwdriver. Once the hardware was removed, we used a rongeur to smooth the bony contour of the femur. We then thoroughly irrigated with copious lavage. At this point, we closed with 0 Vicryl suture, 2-0 Vicryl suture, and adrian for the skin. A sterile dressing was applied. At this point, the patient was taken to the recovery room in good condition. Job ID: [id number]
[2018-10-14] MEDS ORDERED: Mirtazapine 15 MG TAB PO SCH (21:00)
[2018-10-14] MEDS ORDERED: Atorvastatin Calcium 40 MG TAB PO SCH (21:00)
[2018-10-14] MEDS: Carbidopa/Levodopa CR 50-200 mg Tablet PO SCH (21:34)
[2018-10-14] MEDS: Aspirin 81 mg Enteric Coated Tablet PO SCH (21:34)
[2018-10-14] MEDS: Divalproex Sodium 125 mg Sprinkle Capsule PO SCH (21:35)
[2018-10-14] MEDS: Primidone 250 MG TAB PO SCH (21:36)
[2018-10-14] MEDS: Senokot S 8.6-50 MG TAB PO SCH (21:36)
[2018-10-14] MEDS: Gabapentin 300 MG CAP PO SCH (21:36)
[2018-10-14] MEDS: traMADol HCl 50 MG TAB PO PRN (21:49)
[2018-10-15 00:17] VITALS: BMI 25.7
[2018-10-15] MEDS: Clindamycin/D5W 900 MG in Premix Bag 1 BAG IVPB SCH ×3 (01:04→17:41)
[2018-10-15] MEDS ORDERED: Dextrose 50% Abboject 50 ML SYRINGE IVP PRN (06:59)
[2018-10-15] MEDS ORDERED: Dextrose 5% in Water 1,000 ML IV PRN (06:59)
[2018-10-15] MEDS ORDERED: HumaLOG 300 UNITS/3 ML VIAL SC PRN ×2 (06:59)
[2018-10-15] MEDS ORDERED: Magnesium Oxide 400 MG TAB PO SCH (09:00)
[2018-10-15] MEDS ORDERED: Ascorbic Acid 500 mg Chewable Tablet PO SCH (09:00)
[2018-10-15] MEDS ORDERED: Polyethylene Glycol 3350 17 GM Packet PO SCH (09:00)
[2018-10-15] MEDS ORDERED: Alogliptin 25 MG TAB PO SCH (09:00)
[2018-10-15] MEDS ORDERED: Prevnar 13-Val Conj/PF 0.5 ML SYRINGE IM ONE (09:00)
[2018-10-15] MEDS ORDERED: Insulin Glargine 30 UNITS in Pre-Filled Syringe 1 EACH SC SCH (09:00)
[2018-10-15] MEDS ORDERED: risperiDONE 0.25 MG TAB PO SCH (09:00)
[2018-10-15] MEDS ORDERED: Digoxin 0.125 MG TAB PO SCH (09:00)
[2018-10-15] MEDS ORDERED: Lactinex Tablet PO SCH (09:00)
[2018-10-15] MEDS: Divalproex Sodium 125 mg Sprinkle Capsule PO SCH (09:05)
[2018-10-15] MEDS: Gabapentin 300 MG CAP PO SCH (09:07)
[2018-10-15] MEDS: Senokot S 8.6-50 MG TAB PO SCH (09:07)
[2018-10-15] MEDS: Carbidopa/Levodopa CR 50-200 mg Tablet PO SCH ×3 (09:08→17:41)
[2018-10-15] MEDS: traMADol HCl 50 MG TAB PO PRN ×2 (09:09→15:48)
[2018-10-15] MEDS: Aspirin 81 mg Enteric Coated Tablet PO SCH (09:10)
[2018-10-15] MEDS: Primidone 250 MG TAB PO SCH (10:28)
[2018-10-15 15:44] VITALS: BP 113/73; TEMP 98.4
[2018-10-15] MEDS ORDERED: Oxybutynin ER 5 MG TAB PO SCH (21:00)
--- NOTE | 2018-10-17 09:37 | DIS ---
DATE OF ADMISSION: 10/14/2018 DATE OF DISCHARGE: 10/15/2018 This is Cara Huerta PA-C dictating a report for Henry Sosa MD. PREOPERATIVE DIAGNOSES: History of left intertrochanteric femur fracture, now with painful hardware and intra-articular involvement. POSTOPERATIVE DIAGNOSES: History of left intertrochanteric femur fracture, now with painful hardware and intra-articular involvement. PROCEDURE PERFORMED: Left proximal femur hardware removal. BRIEF HOSPITAL COURSE: Mr. Olivera is a 73-year-old male, who fell recently and fractured his proximal femur. He was treated with dynamic hip screw placement. He healed his fracture; however, the femoral head screws become prominent into the acetabulum and hip joint. He is having pain from this, especially with any movement. To preserve his hip and allow for confucianism of pain, we have indicated him for the above-mentioned procedure. Procedure was performed without any complication. Postoperatively, the patient was admitted to the surgical orthopedic floor, where he received postoperative antibiotics, postoperative analgesics, and worked with therapy. On postoperative day #1, he was discharged back to [facility]. DISCHARGE DISPOSITION: group home. DISCHARGE CONDITION: Stable. DISCHARGE INSTRUCTIONS: The patient will keep wound clean, dry, and intact until followup in our office in 2 weeks. He will call for appointment as the appointment has not already been scheduled. DISCHARGE MEDICATIONS: See PORFIRIO. Job ID: [id number]
--- NOTE | 2018-10-18 13:25 | EKG ---
Test Reason : PREOP Blood Pressure : / mmHG Vent. Rate : 091 BPM Atrial Rate : 091 BPM P-R Int : 160 ms QRS Dur : 168 ms QT Int : 386 ms P-R-T Axes : 070 085 -86 degrees QTc Int : 474 ms Pacemaker present, likely dual chamber atrial sensing ventricular pacing No previous ECGs available Confirmed by DR. Joseph WOLFF ([id number]) on 10/18/2018 1:24:53 PM Referred By: KASH Confirmed By:DR. Joseph WOLFF
== END 2018-10-15 17:45 ==
LOC: SDC 12:38 → SURG B 18:41
PROVIDERS: ADMIT Orthopaedic Surgery; ATTEND Orthopaedic Surgery
PROC: 0SPB04Z Removal of Internal Fixation Device from Left Hip Joint, Open Approach (ICD-10-PCS; principal; 2018-10-14)
DX: T85.848A Pain due to other internal prosthetic devices, implants and grafts, initial encounter (principal); S72.142D Displaced intertrochanteric fracture of left femur, subsequent encounter for closed fracture with routine healing; I10 Essential (primary) hypertension; H26.9 Unspecified cataract; E11.9 Type 2 diabetes mellitus without complications; M19.90 Unspecified osteoarthritis, unspecified site; E78.5 Hyperlipidemia, unspecified; F32.9 Major depressive disorder, single episode, unspecified; F41.9 Anxiety disorder, unspecified; Z88.0 Allergy status to penicillin; Z91.018 Allergy to other foods; Z79.4 Long term (current) use of insulin; Z79.82 Long term (current) use of aspirin; Z79.899 Other long term (current) drug therapy; W19.XXXD Unspecified fall, subsequent encounter
CPT/HCPCS: 20680; 80048; 82962 ×2; 85025; 93005; 96365; 96366; 96375; G0378; 36416; 93010; J1825; J2001; J2405; J2704; J3010; J3490

== ENCOUNTER 2019-06-01 17:43 | Emergency (ER) | payer MEDICARE, OTHER ==
[2019-06-01 18:19] LABS: Hemoglobin 9.9 g/dL (14.0-18.0); Mean Corpuscular HGB CONC 33.2 g/dL (32.0-36.0); Mean Corpuscular Hemoglobin 30.1 pg (27.0-31.0); Mean Corpuscular Volume 90.6 fL (78.0-98.0); RBC Distribution Width 12.3 % (11.5-14.5); Red Blood Cell (RBC) Count 3.28 mill/uL (4.70-6.10); White Blood Cell (WBC) Count 10.2 thou/uL (4.8-10.8)
--- NOTE | 2019-06-01 18:25 | RAD ---
EXAM: CHEST ONE VIEW HISTORY: Dyspnea. Altered mental status. COMPARISON: 06/24/2018 FINDINGS: Dual lead left subclavian cardiac pacemaking device remains in place. Cardiac silhouette and pulmonar y vasculature are within normal limits. The lungs are clear. There is right acromioclavicular joint osteoarthritis. There is mild right glenohumeral osteoarthropathy. Vascular calcifications are seen i n the thoracic aorta. The chest is stable compared to prior exam. IMPRESSION: No acute cardiopulmonary process.
[2019-06-01 18:33] LABS: ALT (SGPT) Less than 7 U/L (8-55); AST (SGOT) 12 U/L (5-34); Albumin 3.5 g/dL (3.4-4.8); Alkaline Phosphatase 71 U/L (40-110); Anion Gap 15 mmol/L (10-20); BUN (Urea Nitrogen) 29 mg/dL (8.4-25.7); Bilirubin, Total 0.6 mg/dL (0.2-1.2); Calc. Creatinine Clearance 0 mL/min (70-130); Calcium 8.6 mg/dL (7.8-10.44); Carbon Dioxide 22 mmol/L (23-31); Chloride 104 mmol/L (98-107); Estimated GFR-MDRD 86; Globulin 3.2 g/dL (2.4-3.5); Glucose 89 mg/dL (83-110); Potassium 3.8 mmol/L (3.5-5.1); Protein, Total 6.7 g/dL (5.8-8.1); Sodium 137 mmol/L (136-145)
[2019-06-01 18:40] LABS: #Basophils 0.1 thou/uL (0.0-0.2); #Lymphocytes 1.4 thou/uL (1.20-3.40); #Monocytes 0.5 thou/uL (0.11-0.59); #Neutrophils 8.3 thou/uL (1.40-6.50); %Basophils 1.1 % (0.0-1.0); %Eosinophils 0.2 % (0.0-10.0); %Lymphocytes 13.4 % (21.0-51.0); %Monocytes 4.6 % (0.0-10.0); %Neutrophils 80.7 % (42.0-75.0); Mean Platelet Volume 9.4 fL (7.4-10.4); Platelet Count 103 thou/uL (130-400)
[2019-06-01 18:41] LABS: CK (CPK) 38 U/L (30-200); Lipase Less than 4 U/L (8-78)
[2019-06-01 18:43] LABS: Platelet Morphology Comment Appears Adequate
[2019-06-01 18:52] LABS: Digoxin 0.29 ng/mL (0.8-2.0)
[2019-06-01] MEDS ORDERED: Dexamethasone 4 mg/ml Vial ONE (19:34)
[2019-06-01 19:39] LABS: CKMB 0.2 ng/mL (0-6.6)
== END 2019-06-01 21:40 ==
LOC: ERS 17:43
DX: J20.9 Acute bronchitis, unspecified (principal); I50.9 Heart failure, unspecified; G20 Parkinson's disease; E78.5 Hyperlipidemia, unspecified; E78.00 Pure hypercholesterolemia, unspecified; I48.91 Unspecified atrial fibrillation; G47.00 Insomnia, unspecified; E11.9 Type 2 diabetes mellitus without complications; Z79.899 Other long term (current) drug therapy; Z79.4 Long term (current) use of insulin
CPT/HCPCS: 36415; 71045; 80053; 80162; 80164; 82140; 82550; 82553; 83605; 83690; 83880; 84484; 85025; 87040; 93005; 96361; 96365; 96366; 96375; J1100; J1956; J3370

== ENCOUNTER 2019-07-11 09:04 | Emergency (ER) | payer MEDICARE, OTHER ==
[2019-07-11 10:12] LABS: #Eosinphils 0.1 thou/uL (0.0-0.7); #Lymphocytes 1.6 thou/uL (1.20-3.40); #Monocytes 0.5 thou/uL (0.11-0.59); %Basophils 0.5 % (0.0-1.0); %Eosinophils 0.8 % (0.0-10.0); %Lymphocytes 15.9 % (21.0-51.0); %Monocytes 4.7 % (0.0-10.0); %Neutrophils 78.1 % (42.0-75.0); Hemoglobin 12.7 g/dL (14.0-18.0); Mean Corpuscular HGB CONC 34.8 g/dL (32.0-36.0); Mean Corpuscular Hemoglobin 31.1 pg (27.0-31.0); Mean Corpuscular Volume 89.4 fL (78.0-98.0); Mean Platelet Volume 8.6 fL (7.4-10.4); Platelet Count 196 thou/uL (130-400); RBC Distribution Width 12.4 % (11.5-14.5); Red Blood Cell (RBC) Count 4.07 mill/uL (4.70-6.10); White Blood Cell (WBC) Count 10.3 thou/uL (4.8-10.8)
--- NOTE | 2019-07-11 10:14 | RAD ---
Portable frontal chest radiograph: 07/11/2019 COMPARISON: 06/01/2019 HISTORY: Altered mental status FINDINGS: Lungs are clear. Heart and mediastinal contours appear within normal limits. Stable dual le ad transvenous pacing device. Stable left humeral head anchors. IMPRESSION: No acute findings.
[2019-07-11 10:15] LABS: Bilirubin Negative (Negative); Blood, Urine Negative (Negative); Clarity Clear (Clear); Glucose, Urine (Dipstick) Normal (Negative); Leukocyte Negative Leu/uL (Negative); Nitrite Negative (Negative); Protein, Urine (Dipstick) 20 mg/dL (Neg-Trace)
[2019-07-11 10:27] LABS: ALT (SGPT) 26 U/L (8-55); AST (SGOT) 32 U/L (5-34); Albumin 4.5 g/dL (3.4-4.8); Alkaline Phosphatase 125 U/L (40-110); Anion Gap 18 mmol/L (10-20); BUN (Urea Nitrogen) 12 mg/dL (8.4-25.7); Bilirubin, Total 0.5 mg/dL (0.2-1.2); Calc. Creatinine Clearance 0 mL/min (70-130); Calcium 9.5 mg/dL (7.8-10.44); Carbon Dioxide 25 mmol/L (23-31); Chloride 101 mmol/L (98-107); Estimated GFR-MDRD Greater than 90; Globulin 3.2 g/dL (2.4-3.5); Glucose 91 mg/dL (83-110); Lipase Less than 4 U/L (8-78); Potassium 4.4 mmol/L (3.5-5.1); Protein, Total 7.7 g/dL (5.8-8.1); Sodium 140 mmol/L (136-145)
[2019-07-11 10:41] LABS: CK (CPK) 55 U/L (30-200)
--- NOTE | 2019-07-11 10:48 | CT ---
Head CT without contrast 07/11/2019: COMPARISON: None HISTORY: Altered mental status TECHNIQUE: Axial CT imaging at 5 mm intervals from vertex through skull base without contrast FINDINGS: There is moderate diffuse cerebral volume loss with associated prominence of the CSF contai susanne spaces. Imaged paranasal sinuses and mastoid air cells grossly unremarkable. There is atherosclerotic calcification involving the cavernous carotid arteries. No intracranial hemorrhage, midline shift, or mass effect. IMPRESSION: Cerebral volume loss with no intracranial hemorrhage.
== END 2019-07-11 11:32 | disposition home or self-care (01) ==
LOC: ERS 09:04
DX: R41.82 Altered mental status, unspecified (principal); I48.91 Unspecified atrial fibrillation; G47.00 Insomnia, unspecified; E11.9 Type 2 diabetes mellitus without complications; E78.5 Hyperlipidemia, unspecified; E78.00 Pure hypercholesterolemia, unspecified; F31.9 Bipolar disorder, unspecified; F03.90 Unspecified dementia, unspecified severity, without behavioral disturbance, psychotic disturbance, mood disturbance, and anxiety; I50.9 Heart failure, unspecified; G20 Parkinson's disease; Z87.891 Personal history of nicotine dependence; Z79.4 Long term (current) use of insulin; Z79.899 Other long term (current) drug therapy
CPT/HCPCS: 36416; 51701; 70450; 71045; 80053; 81003; 82550; 83690; 84443; 84484; 85025; 87086; 93005

== ENCOUNTER 2020-03-31 16:03 | Emergency (ER) | payer MEDICARE, MEDICAID ==
[2020-03-31] MEDS ORDERED: Morphine 4 MG/ML VIAL ONE (16:40)
--- NOTE | 2020-03-31 18:13 | RAD ---
Exam: 1 view pelvis HISTORY: Injury. Patient claims her right hip pain COMPARISON: Views left hip on 08/11/2018. FINDINGS: There is destruction and absence of a portion of the left femoral neck and femoral head, and the prev iously seen metallic hardware transfixing the left hip is no longer in place. Very small remaining portion of the femoral head is seen in the region of the acetabulum, but the remainder of the proxima l femur is displaced superiorly and slightly laterally. The right hip is obtained in external rotation which limits evaluation of the femoral neck. No obviou s displaced fracture is seen. There is no dislocation seen. Osteopenia is present. Degenerative changes are seen in the lower lumbar spine. Vascular calcification are identified. IMPRESSION: 1. Right hip is in external rotation limiting evaluation of the femoral neck, but no obvious displace d fracture is seen. 2. Findings which are likely related to combination of posttraumatic and postsurgical changes of the proximal left femur. There has been interval removal of his hardware, and there is now absence of the femoral neck and a portion of the femoral head with osseous fragment seen adjacent to the left hi p which may represent displacement of a prior greater trochanter fracture fragment and heterotopic ossification.
--- NOTE | 2020-03-31 19:14 | RAD ---
FRONTAL AND LATERAL IMAGING OF THE RIGHT FEMUR: 03/31/20 HISTORY: Hip pain. FINDINGS: The osseous structures are demineralized, limiting detailed assessment. There is extensive vascular c alcification medially. There is severe degenerative change involving the right knee. No displaced fra cture or dislocation is evident. The frontal examination is limited secondary to rotation. IMPRESSION: Demineralized bones with no obvious displaced fracture. Frontal examination of the right femur at the level of the proximal right femur/hip is suboptimal secondary to rotation. Fracture cannot be exclud ed, CT hip advised. POS: MARIA DOLORES
--- NOTE | 2020-03-31 19:23 | CT ---
EXAM: CT Lower Ext Rt WO Con PROVIDED CLINICAL HISTORY: Injury to right hip. Patient plans right hip pain. COMPARISON: None FINDINGS: There is a minimally fracture involving the right greater trochanter. No additional acute f racture is seen, and there is no evidence of a dislocation. There is diffuse osteopenia present. There is heterogeneity involving the right femoral head which is likely due to combination of osteoarthritis and bony demineralization. There is a corticated osseous density seen adjacent to the anterior lateral acetabulum which may be degenerative in origin or possibly secondary to prior injury. There is osteoarthritis involving the right sacroiliac joint. There is suggestion of a minimal right hip joint effusion. There is atrophy of the right pelvic muscu lature. Right inguinal hernia is present. Very minimal portion of the right anterolateral aspect urinary blad aroldo partially extends into the hernia defect. Vascular calcifications are identified. IMPRESSION: 1. Minimally but nondisplaced right greater trochanter fracture. No additional fracture is seen, and there is no dislocation. 2. Osteopenia. There is heterogeneity of the femoral head likely related to demineralization and asso ciated osteoarthritis. 3. Corticated osseous density adjacent to the anterolateral aspect of the acetabulum on the right whi ch may be posttraumatic in origin and related to remote injury or possibly degenerative in origin. 4. Fat-containing right inguinal hernia, but a very small portion of the right anterolateral aspect o f the urinary bladder partially extends into the defect.
== END 2020-03-31 23:34 ==
LOC: ERS 16:03
DX: S72.114A Nondisplaced fracture of greater trochanter of right femur, initial encounter for closed fracture (principal); I50.9 Heart failure, unspecified; I48.91 Unspecified atrial fibrillation; E11.9 Type 2 diabetes mellitus without complications; E78.5 Hyperlipidemia, unspecified; E78.00 Pure hypercholesterolemia, unspecified; F31.9 Bipolar disorder, unspecified; G20 Parkinson's disease; F02.80 Dementia in other diseases classified elsewhere, unspecified severity, without behavioral disturbance, psychotic disturbance, mood disturbance, and anxiety; G47.00 Insomnia, unspecified; Z87.891 Personal history of nicotine dependence; Z79.4 Long term (current) use of insulin; Z79.82 Long term (current) use of aspirin; Z79.899 Other long term (current) drug therapy; W22.01XA Walked into wall, initial encounter
CPT/HCPCS: 96372; J2270

== ENCOUNTER 2020-05-02 10:44 | Inpatient (IN) | payer MEDICARE, MEDICAID ==
--- NOTE | 2020-05-02 12:01 | RAD ---
Chest AP view INDICATION: History of Covid positive test and cough COMPARISON: Prior exam dated July 11, 2019 FINDINGS: Lungs: The lungs are clear Cardiac silhouette: The cardiomediastinal silhouette appears within normal limits. Pulmonary vasculature: Normal Pleural spaces: No pleural effusion or pneumothorax is demonstrated. Upper abdomen: No abnormality seen. Osseous structures: There is scattered degenerative and osteoarthritic change present. Additional findings: Dual-lead pacemaker is unchanged. IMPRESSION: No acute cardiopulmonary abnormality.
[2020-05-02 12:25] LABS: SARS-CoV-2 NAA Rapid Test DETECTED (NotDetected)
[2020-05-02 12:25] LABS: Hemoglobin 12.7 g/dL (14.0-18.0); Mean Corpuscular HGB CONC 31.6 g/dL (32.0-36.0); Mean Corpuscular Hemoglobin 30.1 pg (27.0-31.0); Mean Corpuscular Volume 95.3 fL (78.0-98.0); RBC Distribution Width 12.8 % (11.5-14.5); Red Blood Cell (RBC) Count 4.22 mill/uL (4.70-6.10)
[2020-05-02 12:32] LABS: ALT (SGPT) 12 U/L (8-55); AST (SGOT) 24 U/L (5-34); Albumin 4.1 g/dL (3.4-4.8); Alkaline Phosphatase 143 U/L (40-110); Anion Gap 23 mmol/L (10-20); BUN (Urea Nitrogen) 15 mg/dL (8.4-25.7); Bilirubin, Total 0.3 mg/dL (0.2-1.2); Calc. Creatinine Clearance 0 mL/min (70-130); Calcium 8.5 mg/dL (7.8-10.44); Carbon Dioxide 25 mmol/L (23-31); Chloride 96 mmol/L (98-107); Globulin 3.3 g/dL (2.4-3.5); Glucose 68 mg/dL (83-110); Lipase 4 U/L (8-78); Potassium 4.3 mmol/L (3.5-5.1); Protein, Total 7.4 g/dL (5.8-8.1); Sodium 140 mmol/L (136-145)
[2020-05-02 12:41] LABS: Band 41 % (5-11); Eosinophils 1 % (0-10); Hypochromia SLIGHT = 6-15 cells (100X) (0-5/hpf); Lymphocytes 7 % (21-51); MDiff Complete? YES; Mean Platelet Volume 8.8 fL (7.4-10.4); Monocytes 6 % (0-10); Neutrophil 42 % (42-75); Platelet Count 46 thou/uL (130-400); Platelet Morphology Comment Appears Decreased; Polychromasia SLIGHT = 2-3 cells (100X) (0-2/hpf); Reactive Lymphocytes 3 % (0-10); Reflex for Review?? NO
[2020-05-02] MEDS ORDERED: Iopamidol-370 76% 500 ML 1 ML ONE (13:05)
--- NOTE | 2020-05-02 13:23 | CT ---
CTA Angio Chest W WO Con 05/02/2020 1:10 PM Indication: 34-year-old male with history of Covid disease and concern for possible PE Technique: Multiple CTA images were obtained of the thorax with IV contrast. 3-D rendering: MIP rita nstructed images were created and reviewed. Comparison: Prior CT of the abdomen and pelvis dated April 10, 2013 Findings: Pulmonary arteries: No central or segmental pulmonary embolus is evident. Heart and Aorta: There are coronary artery and thoracic aortic calcifications. There is a dual-lead pacemaker overlying left chest wall. Mediastinum:Normal appearing. No enlarged lymph nodes. Lungs:There are areas of subsegmental volume loss involving the right lung base and medial left lung base. Pleural space: Clear. Upper Abdomen: Small stones are seen within the gallbladder. There is calcified granuloma within the liver. There is a 3 mm nonobstructing calculus within the superior pole of the left kidney. Osseous Structures: There is stable mild superior endplate compression abnormalities of L1, T12 and T9. There is scattered degenerative and osteoarthritic change present. Soft tissues:No abnormality. Other findings:None. Impression: No central or segmental pulmonary embolus. Stable chronic superior endplate compression abnormalities of T9, T12 and L1. Left nephrolithiasis. Cholelithiasis.
--- NOTE | 2020-05-02 13:52 | CT ---
CT OF CHEST PERFORMED WITHOUT CONTRAST ENHANCEMENT: HISTORY: Altered mental status. COMPARISON: 07/11/2019 exam. FINDINGS: There is marked generalized ventricular and sulcal prominence. There are no signs of intracerebral h emorrhage or extraaxial fluid collection. Mastoid air cells and visualized sinuses are clear. IMPRESSION: No acute intracranial abnormalities. POS: KEESHA
[2020-05-02] MEDS ORDERED: Calcium Carbonate 500 MG ChewTAB PO PRN (15:06)
[2020-05-02] MEDS ORDERED: HumaLOG 300 UNITS/3 ML VIAL SC PRN ×2 (15:06)
[2020-05-02] MEDS ORDERED: Bisacodyl 10 MG SUPP PR PRN (15:06)
[2020-05-02] MEDS ORDERED: Dextrose 5% in Water 1,000 ML IV PRN (15:06)
[2020-05-02] MEDS ORDERED: Guaifenesin DM 100-10/5 ML UDCUP PO PRN (15:06)
[2020-05-02] MEDS ORDERED: Senokot S 8.6-50 MG TAB PO PRN (15:06)
[2020-05-02] MEDS ORDERED: Dextrose 50% Abboject 50 ML SYRINGE SLOW IVP PRN (15:06)
[2020-05-02] MEDS ORDERED: Acetaminophen 325 MG TAB PO PRN (15:06)
--- NOTE | 2020-05-02 16:10 | CT ---
CT ABDOMEN NONCONTRAST CT PELVIS NONCONTRAST: (Urolithiasis protocol) DATE: 05/02/2020 HISTORY: 75-year-old male with nonspecific abdominal pain COMPARISON: 04/10/2013 TECHNIQUE: IV injection of iodinated contrast media: None Oral contrast media: None FINDINGS: Other than for urolithiasis, the lack of IV and oral contrast limits the evaluation. Previous right hip CT of 03/31/2020 showed minimally displaced fracture of greater trochanter of right proximal femur. Now, that intertrochanteric fracture is moderately displaced, and comminuted, with nonunion. Previous left hip CT of 06/24/2018 showed minimally displaced left subcapital femoral neck fracture an d intertrochanteric fracture. Now, that has become significantly more (moderately) displaced, and the comminuted, with nonunion. Loss of height of multiple vertebral bodies throughout the lumbar spine consistent with osteoporotic compression fractures of indeterminate ages, at least most of which are probably not acute. Patient received IV contrast for CT pulmonary angiogram earlier today. That contrast material is dist ending the urinary bladder, which has normal, thin stern. Small amount of contrast material is present in nondilated bilateral renal collecting systems and ureters bilaterally. Atherosclerosis without aneurysm of abdominal aorta. Normal appendix. Within the limitations of a noncontrast scan, no gross major abnormality identified involving the atr ophic fatty replaced pancreas, liver, adrenals, kidneys, or spleen. Large amount of stool distending the rectum with AP and transverse dimensions of approximately 6 x 7. 5 cm. Minimal circumferential mural thickening of the rectum. Mild perirectal edema in the presacral space. No small bowel dilation, colonic diverticulitis, ascites, or pneumoperitoneum. No consolidation or pleural effusion at lung bases. No cardiomegaly. Pacemaker. IMPRESSION: 1) nonunion, and significant comminution and displacement, of bilateral proximal femoral fractures. 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 3) distended urinary bladder 4) rectal fecal impaction. Recommend clinical correlation for possible stercoral proctitis. 5) otherwise no other potentially acute findings
[2020-05-02] MEDS: Sodium Chloride 0.9% 1,000 ML IV SCH (16:25)
[2020-05-02 16:32] LABS: INR-International Normal Ratio 1.1; PTT 31.5 sec (22.9-36.1); Prothrombin Time 13.9 sec (12.0-14.7)
[2020-05-02 16:33] LABS: D-Dimer Test 2.49 *mcg/mL (0.27-0.43)
[2020-05-02] MEDS: cefTRIAXone\\ROCEPHIN 1 GM in Sodium Chloride 0.9% 100 ML IVPB SCH (17:00)
[2020-05-02] MEDS ORDERED: cefTRIAXone\\ROCEPHIN 1 GM VIAL ONE (17:15)
[2020-05-02] MEDS ORDERED: Fleet Enema 133 ML BOT PR SCH (17:30)
--- NOTE | 2020-05-02 18:25 | HP ---
REASON FOR ADMISSION: Altered mental state, severe dehydration, constipation, tested COVID positive this morning. HISTORY OF PRESENTING ILLNESS: Please note, majority of this history is obtained by talking to nursing staff at [facility] and ER physician and prior medical records as patient is not oriented. The patient apparently got tested for COVID yesterday and it came back positive this morning. From last 2 days, the patient has not been eating or drinking. He was severely dehydrated at the detention. His speech got slurred and is slow to respond. At baseline, the patient is apparently alert and oriented and manages his money. He also carries on a conversation per staff at the detention. He has not been able to walk for almost a year now. He has had left hip fracture 2 years back and the hardware was removed a year back due to severe pain. He also sustained a right hip fracture. Ever since, he has been in an electric wheelchair. His knees are contracted like a [place]. He currently opens his eyes and tries to communicate, but has severe dysarthria. He is not oriented. He seems to have some abdominal pain which is nonspecific when I tried to palpate his abdomen. He does not appear to be short of breath. PAST MEDICAL AND SURGICAL HISTORY: Bilateral hip fractures, multiple compression fractures of the spine. The patient has had left hip intertrochanteric femur fracture surgically repaired with screw fixation and dynamic hip screw fixation on 06/25/[address] Sosa. He has had the hardware removed from the left hip due to intractable pain on 10/14/2018. The patient has had placement of a dual- chamber pacemaker on 01/14/[address] Fernandez. History of chronic atrial fibrillation which is rate controlled, hypertension, diabetes mellitus type 2, dyslipidemia, anxiety, depression, dementia, peptic ulcer disease, osteoarthritis, vitamin B12 deficiency, left shoulder arthroscopic subacromial decompression, rotator cuff repair, left cataract surgery, and Parkinson disease. CURRENT MEDICATIONS: 1. Aspirin 81 mg p.o. daily. 2. Primidone 250 mg p.o. twice daily. 3. Digoxin 0.125 mg p.o. daily. 4. Mirtazapine 15 mg p.o. daily. 5. Ibuprofen 400 mg 3 times daily p.r.n. 6. Zoloft 100 mg p.o. daily. 7. Januvia 100 mg p.o. daily. 8. Vitamin D3 1000 units two tablets daily. 9. Sinemet 25/100 mg one tablet four times daily. 10. Simvastatin 80 mg p.o. daily. 11. 70/30 Humulin insulin 10 units subcu q.a.m. and 20 units subcu q.p.m. 12. Depakote 250 mg p.o. twice daily. 13. Neurontin 300 mg daily. 14. Ditropan extended release one tablet daily, 10 mg. 15. K-Dur 10 mEq p.o. daily. ALLERGIES: ALLERGIC TO PENICILLIN, MUSHROOM, AND PORK. PERSONAL HISTORY: Does not abuse alcohol or drugs. The patient is a [facility] resident. FAMILY HISTORY: Cannot be obtained as the patient is not oriented. REVIEW OF SYSTEMS: Cannot be obtained as the patient is not oriented. PHYSICAL EXAMINATION: GENERAL: The patient is a 75-year-old male, who is currently not in any acute distress, but is not oriented and is very lethargic. VITAL SIGNS: Blood pressure 160/80, pulse 90 per minute, respiratory rate 14 per minute, temperature 98.1 degrees Fahrenheit, saturating 99% on room air. NECK: Supple. No elevated JVD. HEENT: Eyes; extraocular muscles intact. Pupils reacting to light. Oral cavity, mucous membranes are dry. CARDIOVASCULAR: S1 and S2 heard. Regular rhythm. RESPIRATORY: Air entry 1+ bilateral. No rales or rhonchi. ABDOMEN: Soft. There is mild tenderness, which is nonspecific when I palpate his abdomen. No rigidity or guarding. EXTREMITIES: There is mild peripheral edema. The patient's legs are held in [place] shape. He has extreme pain on mobilizing and passive movement of his both lower extremities. The peripheral pulses are 1+ bilateral. No ischemic ulcers or gangrene. CENTRAL NERVOUS SYSTEM: No gross focal deficits noted. The patient is not oriented. He moves sluggishly both upper extremities, but not lower extremities. PSYCHIATRIC: No hallucinations or delusions at present, but the patient is not oriented at present and it is limited. LABORATORY DATA: White count of 6, H and H 12 and 40, platelet count is 46, MCV is 95 with 41% bands, 42% neutrophils. PT/INR, PTT within normal limits. D-dimer is 2.49. Serum bicarb is 25, BUN 15, creatinine 0.8, serum glucose 68. AST and ALT within normal limits, alkaline phosphatase 143. BNP 19. Albumin is 4.1. COVID-19 PCR is positive. Lipase is 4. CT of the abdomen and pelvis without contrast done shows nonunion and significant comminution and displacement of bilateral proximal femoral fractures. Multiple osteoporotic compression fractures of lumbar spine. Large amount of stool in the rectal vault. Distended urinary bladder. CT angio chest done shows no central or segmental pulmonary embolus. There is stable chronic superior endplate compression abnormalities of T9, T12, L1. Left nephrolithiasis, cholelithiasis seen. CT brain shows no acute intracranial abnormality. CLINICAL IMPRESSION AND PLAN: The patient will be admitted to medical floor for severe dehydration with the patient not eating or drinking for the last 2 days, coronavirus disease 2019 virus infection, severe constipation, and acute metabolic encephalopathy. He will be gently hydrated with normal saline. If needed, we will switch this over to D5 water. He will be placed on ceftriaxone and Flagyl. Blood cultures and urine cultures will be obtained. We will also place him on aspirin 81 mg daily. We will continue digoxin, Depakote, Remeron, Ditropan XL, primidone, Zoloft as before. Fleet enema x1 and Dulcolax suppository q.8 hourly will be done for severe constipation. We will closely watch his urinary retention. If the volume of urine is more than 800 mL, Roberts catheter will be placed. He will be on airborne and droplet precautions. Chest x-ray does not reveal any acute infiltrate. Once hydration is completed, we will obtain a portable chest x-ray to see if there are any infiltrates. The patient is do not attempt to resuscitate at the detention. There are no family members for patient per detention records, and this was confirmed with staff at the detention. He is a [id number] at the detention and carries out of hospital [id number] and will continue the same here. Ultrasound venous Doppler lower extremity to rule out deep venous thrombosis will be obtained. We will also continue his Sinemet as before. He will be on bowel regimen as well. Job ID: [id number] [facility]
[2020-05-02] MEDS: Carbidopa/Levodopa CR 50-200 mg Tablet PO SCH ×2 (20:40→22:09)
[2020-05-02] MEDS: Mirtazapine 15 MG TAB PO SCH (21:49)
[2020-05-02] MEDS: Primidone 250 MG TAB PO SCH (21:50)
[2020-05-02] MEDS: Bisacodyl 10 MG SUPP PR SCH (21:50)
[2020-05-02] MEDS: metroNIDAZOLE 500 MG in Premix Bag 1 BAG IVPB SCH (21:52)
[2020-05-02] MEDS: Oxybutynin ER 5 MG TAB PO SCH (22:08)
[2020-05-02] MEDS: Divalproex Sodium 125 mg Sprinkle Capsule PO SCH (22:08)
--- NOTE | 2020-05-02 22:30 | ULT ---
US Venous Doppler Bilat History: Lower extremity pain and edema Comparison: None. Findings: Real-time grayscale, color and spectral analysis of the bilateral lower extremity venous sy stem was performed. The common femoral, femoral, proximal portions greater saphenous and deep femoral veins as well as the popliteal and posterior tibial veins were interrogated. Normal flow, augmentation and compression. Impression: No deep venous thrombosis.
[2020-05-03] MEDS: Sodium Chloride 0.9% 1,000 ML IV SCH ×4 (01:47→22:27)
[2020-05-03] MEDS: metroNIDAZOLE 500 MG in Premix Bag 1 BAG IVPB SCH ×3 (05:17→22:26)
[2020-05-03] MEDS: Bisacodyl 10 MG SUPP PR SCH ×3 (05:17→22:27)
[2020-05-03 06:54] LABS: Anion Gap 33 mmol/L (10-20); BUN (Urea Nitrogen) 14 mg/dL (8.4-25.7); Calc. Creatinine Clearance 0 mL/min (70-130); Calcium 8.2 mg/dL (7.8-10.44); Carbon Dioxide 13 mmol/L (23-31); Chloride 100 mmol/L (98-107); Glucose 145 mg/dL (83-110); Potassium 4.1 mmol/L (3.5-5.1); Sodium 142 mmol/L (136-145)
[2020-05-03 07:02] LABS: #Lymphocytes 0.8 thou/uL (1.20-3.40); #Monocytes 0.9 thou/uL (0.11-0.59); #Neutrophils 12.6 thou/uL (1.40-6.50); %Basophils 0.1 % (0.0-1.0); %Eosinophils 0.2 % (0.0-10.0); %Lymphocytes 5.8 % (21.0-51.0); %Neutrophils 87.8 % (42.0-75.0); Hemoglobin 11.8 g/dL (14.0-18.0); Mean Corpuscular HGB CONC 32.7 g/dL (32.0-36.0); Mean Corpuscular Hemoglobin 31.2 pg (27.0-31.0); Mean Corpuscular Volume 95.4 fL (78.0-98.0); Mean Platelet Volume 8.9 fL (7.4-10.4); Platelet Count 188 thou/uL (130-400); RBC Distribution Width 12.9 % (11.5-14.5); Red Blood Cell (RBC) Count 3.78 mill/uL (4.70-6.10); White Blood Cell (WBC) Count 14.3 thou/uL (4.8-10.8)
[2020-05-03] MEDS ORDERED: FLU VACC QS2020-21(65YR UP)/PF 240 MCG/0.7 ML SYRINGE IM ONE (08:00)
[2020-05-03] MEDS: Digoxin 0.125 MG TAB PO SCH ×2 (09:23→10:11)
[2020-05-03] MEDS: Aspirin Chewable 81 MG TAB PO SCH ×2 (09:23→10:11)
[2020-05-03] MEDS: Enoxaparin Sodium 40 MG/0.4 ML SYRINGE SC SCH (09:23)
[2020-05-03] MEDS: Carbidopa/Levodopa CR 50-200 mg Tablet PO SCH ×5 (09:24→20:00)
[2020-05-03] MEDS: Polyethylene Glycol 3350 17 GM Packet PO SCH ×2 (09:24→10:12)
[2020-05-03] MEDS: Divalproex Sodium 125 mg Sprinkle Capsule PO SCH ×3 (09:25→20:00)
[2020-05-03] MEDS: Primidone 250 MG TAB PO SCH ×2 (10:09→21:00)
--- NOTE | 2020-05-03 10:54 | CT ---
CT BRAIN WITHOUT CONTRAST HISTORY: Altered mental status, CVA COMPARISON: Previous day. FINDINGS: Changes of cortical atrophy are again seen with stable ventricular size. No evidence of acu te infarct, hemorrhage, midline shift or abnormal extra-axial fluid collections is seen. The bony calvarium is intact. The visualized paranasal sinuses and mastoid air cells are well-aerated. IMPRESSION: Stable exam. No CT evidence of acute intracranial process.
--- NOTE | 2020-05-03 12:22 | PDOC.HOSPP ---
- Subjective Encounter Date: 05/03/20 Encounter Time: 08:25 Subjective: awake, not oriented vomitted this am which was brownish in color per staff had bm's overnight with enema and suppositories per staff - Objective Vital Signs & Weight: Vital Signs (12 hours) Temp Pulse Resp BP Pulse Ox 05/03/20 10:20 97.1 F L 67 18 126/81 100 05/03/20 10:11 75 05/03/20 08:00 100 05/03/20 03:50 96.7 F L 75 14 156/61 H 97 I&O: 05/02/20 05/03/20 05/04/20 06:59 06:59 06:59 Intake Total 1000 Balance 1000 Result Diagrams: 05/03/20 10:30 05/03/20 06:07 Additional Labs: Accuchecks 05/03/20 05/02/20 06:27 22:32 POC Glucose 138 H 152 H Hospitalist ROS - Medication Medications: Active Medications Generic Name Dose Route Start Last Admin Trade Name Freq PRN Reason Stop Dose Admin Aspirin 81 mg 05/03/20 09:00 05/03/20 10:11 Aspirin Chewable 81 Mg Tab PO Not Given DAILY HERMINIA Bisacodyl 10 mg 05/02/20 22:00 05/03/20 05:17 Bisacodyl 10 Mg Supp TX 10 mg Q8HR HERMINIA Administration Carbidopa/Levodopa 0.5 tab 05/02/20 17:00 05/03/20 11:35 Carbidopa/Levodopa Cr 50-200 Mg Tablet PO Not Given QID HERMINIA Digoxin 0.125 mg 05/03/20 09:00 05/03/20 10:11 Digoxin 0.125 Mg Tab PO Not Given DAILY HERMINIA Divalproex Sodium 250 mg 05/02/20 21:00 05/03/20 10:11 Divalproex Sodium 125 Mg Sprinkle Capsule PO Not Given BID HERMINIA Enoxaparin Sodium 40 mg 05/03/20 09:00 05/03/20 09:23 Enoxaparin Sodium 40 Mg/0.4 Ml Syringe SC 40 mg 0900 HERMINIA Administration Ceftriaxone Sodium 1 gm/ 100 mls @ 200 mls/hr 05/02/20 16:00 05/02/20 17:00 Sodium Chloride IVPB 100 mls Q24HR HERMINIA Administration Sodium Chloride 1,000 mls @ 100 mls/hr 05/02/20 15:06 05/03/20 11:05 Normal Saline 0.9% IV Not Given .Q10H HERMINIA Metronidazole 500 mg/ Device 100 mls @ 100 mls/hr 05/02/20 22:00 05/03/20 05:17 IVPB 100 mls Q8HR HERMINIA Administration Mirtazapine 15 mg 05/02/20 21:00 05/02/20 21:49 Mirtazapine 15 Mg Tab PO 15 mg HS HERMINIA Administration Oxybutynin Chloride 10 mg 05/02/20 21:00 05/02/20 22:08 Oxybutynin Er 5 Mg Tab PO 10 mg HS HERMINIA Administration Polyethylene Glycol 17 gm 05/03/20 09:00 05/03/20 10:12 Polyethylene Glycol 3350 17 Gm Packet PO Not Given DAILY HERMINIA Primidone 250 mg 05/02/20 21:00 05/03/20 10:09 Primidone 250 Mg Tab PO Not Given BID HERMINIA Sertraline HCl 100 mg 05/03/20 09:00 05/03/20 10:12 Sertraline Hcl 100 Mg Tab PO Not Given DAILY HERMINIA Sodium Chloride 10 ml 05/03/20 09:00 05/03/20 09:26 Flush - Normal Saline 10 Ml Syringe IVF 10 ml Q12HR HERMINIA Administration - Exam General Appearance: ill appearing Eye: PERRL, anicteric sclera ENT: no oropharyngeal lesions, dry oral mucosa Neck: supple, no JVD Heart: RRR, no murmur Respiratory: no wheezes, no rales, rhonchi Gastrointestinal: soft, non-tender, non-distended, normal bowel sounds Extremities: no cyanosis, 1+ LE edema Neurological: cranial nerve grossly intact, no focal deficits Hosp A/P (1) Acute metabolic encephalopathy Code(s): G93.41 - METABOLIC ENCEPHALOPATHY Status: Acute (2) COVID-19 virus infection Code(s): U07.1 - COVID-19 Status: Acute (3) Constipation Code(s): K59.00 - CONSTIPATION, UNSPECIFIED Status: Acute (4) Nausea and vomiting Code(s): R11.2 - NAUSEA WITH VOMITING, UNSPECIFIED Status: Acute Qualifiers: Vomiting type: unspecified Vomiting Intractability: non-intractable Qualified Code(s): R11.2 - Nausea with vomiting, unspecified (5) BHUPINDER (acute kidney injury) Code(s): N17.9 - ACUTE KIDNEY FAILURE, UNSPECIFIED Status: Acute (6) Moderate dehydration Code(s): E86.0 - DEHYDRATION Status: Acute (7) HTN (hypertension) Code(s): I10 - ESSENTIAL (PRIMARY) HYPERTENSION Status: Chronic Qualifiers: Hypertension type: essential hypertension Qualified Code(s): I10 - Essential (primary) hypertension (8) FTT (failure to thrive) in adult Status: Chronic - Plan continue iv hydation CT brain back to back does not show ac infarct, cant get MRI due to pcm is on ceftriaxone and flagyl, likely might have some stercoral colitis with severe constipation, ?uti is covid 19 +ve with no pna has chronic h/o b/l hip fractures and is bed bound continue above meds encourage po intake pending KUB to r/o sbo?? protonix q12h, h/h q8h, GI consultation for ?upper gi bleed (brown vomitus this am...?sbo/gi bleed) and constipation prognosis guarded no dvt in lower extremities
[2020-05-03] MEDS: Ondansetron PF 4 MG/2 ML Vial IVP PRN ×2 (12:57→18:08)
--- NOTE | 2020-05-03 15:11 | RAD ---
KUB: 05/03/20 HISTORY: Abdominal pain, vomiting, constipation. Bowel gas pattern appears nonobstructive. There is no significant stool present. Marked arthritic ch anges of the spine are present. Bones are demineralized. Bilateral hip fractures are again identified . This was noted on the previous CT study and includes some more obliquely, more intertrochanteric fr acture of the right hip and a comminuted fracture of the femoral head and intertrochanteric region of the left hip. IMPRESSION: No evidence of obstruction. Bilateral hip fractures as above. POS: KEESHA
--- NOTE | 2020-05-03 15:11 | PDOC.FMACP ---
Advance Care Planning - Problem (1) Palliative care encounter Status: Acute Code(s): Z51.5 - ENCOUNTER FOR PALLIATIVE CARE (2) Acute metabolic encephalopathy Status: Acute Code(s): G93.41 - METABOLIC ENCEPHALOPATHY (3) COVID-19 virus infection Status: Acute Code(s): U07.1 - COVID-19 (4) Nausea and vomiting Status: Acute Code(s): R11.2 - NAUSEA WITH VOMITING, UNSPECIFIED Qualifiers: Vomiting type: unspecified Vomiting Intractability: non-intractable Qualified Code(s): R11.2 - Nausea with vomiting, unspecified (5) FTT (failure to thrive) in adult Status: Chronic (6) HTN (hypertension) Status: Chronic Code(s): I10 - ESSENTIAL (PRIMARY) HYPERTENSION Qualifiers: Hypertension type: essential hypertension Qualified Code(s): I10 - Essential (primary) hypertension - Note Participants: patient, palliative care, other (Communicated with KENDELL at [facility]. Patient has resided at facility over 10 years, no known family. Patient not decisional) Summary: Palliative care revisited Advanced Care Planning with KENDELL at [facility]. The diagnosis, prognosis and goals of care were discussed. Appropriate forms and documentation to accomplish the goals of care were discussed. *Confirmed resident at [facility]/over 10 years *No known family *Confirmed OOHDNAR and prior DNAR status Palliative care will reach out to "[employer]" to identify process for securing surrogate decision maker for patient. Once information is obtained it will be shared with Hospitalist. Consult was for confirmation of resuscitation status. Confirmed. Please also refer to Palliative Care notes in note section. Palliative Care will sign off as consult was for confirmation of resuscitation status. This is complete. If our team can further assist with revisiting Goal of care please re consult. Thank you for this very appropriate consult. Time Spent (mins): 15
[2020-05-03] MEDS: cefTRIAXone\\ROCEPHIN 1 GM in Sodium Chloride 0.9% 100 ML IVPB SCH (15:14)
[2020-05-03] MEDS: Mirtazapine 15 MG TAB PO SCH (20:00)
[2020-05-03] MEDS: Oxybutynin ER 5 MG TAB PO SCH (20:00)
--- NOTE | 2020-05-03 20:36 | CON ---
DATE OF CONSULTATION: 05/03/2020 REQUESTING PHYSICIAN: Britney Rodriguez MD REASON FOR CONSULTATION: Stool impaction, concern for possible GI bleeding. HISTORY OF PRESENT ILLNESS: Amado Olivera is a very unfortunate 75-year-old gentleman, who was admitted from the correction yesterday with a couple of days of minimal oral intake, found to be dehydrated with altered mental status. COVID PCR came back positive. He does have a leukocytosis of 14.3. Admission CT of the abdomen and pelvis demonstrated not only bilateral displaced femoral head fractures, but what appeared to be a rectal fecal impaction with significant amount of stool distending the rectum and some possible minimal circumferential thickening in the area. The patient had evidently been complaining of some abdominal pain. He has been treated with supportive care. IV fluids and antibiotics. He received a Fleet Enema and has been getting Dulcolax suppositories. Over the course of the day, he has had multiple brown bowel movements with no evidence of bleeding. He did have a single episode of vomiting, which was characterized as brownish fluid this morning, but no further vomiting. He remains noncommunicative. Repeat abdominal x-ray from this afternoon demonstrates no evidence of bowel obstruction and no significant amount of stool. Palliative Care has seen the patient. Evidently, there are no family members and discussions about goals of care are underway. REVIEW OF SYSTEMS: Unable to obtain as the patient is not verbally communicative. PAST MEDICAL HISTORY: Bilateral displaced hip fractures, not an operative candidate, multiple compression fractures of the spine, chronic atrial fibrillation, dual-chamber pacemaker, hypertension, diabetes type 2, dyslipidemia, depression, anxiety, dementia, peptic ulcer disease, osteoarthritis, vitamin B12 deficiency, rotator cuff repair, Parkinson disease, and cataract surgery. ALLERGIES: PENICILLIN, MUSHROOMS, AND PORK. OUTPATIENT MEDICATIONS: 1. Aspirin 81 mg daily. 2. Primidone. 3. Digoxin. 4. Mirtazapine. 5. Ibuprofen. 6. Zoloft. 7. Januvia. 8. Vitamin D3. 9. Sinemet. 10. Simvastatin. 11. 70/30 Humulin insulin 10 units subcu in the a.m. and 20 units subcu in the p.m. 12. Depakote. 13. Neurontin. 14. Ditropan. 15. Potassium. 16. Chloride 10 mEq daily. FAMILY HISTORY: Unable to obtain. PERSONAL HISTORY: The patient resides at [facility]. No alcohol or drug abuse. PHYSICAL EXAMINATION: VITAL SIGNS: Temperature 97.9, pulse 78, blood pressure 128/61, and 100% oxygen saturation on room air. GENERAL: Chronically ill-appearing 75-year-old man, lying in bed comfortably, in no distress. MENTAL: He does not verbally communicate. He is somnolent. SKIN: He is very pale. No jaundice. No rashes were palpable. EYES: No scleral icterus. ENT: Dry mucous membranes. LYMPH: No submandibular or supraclavicular lymphadenopathy. THYROID: Nontender to palpation. HEART: Regular rate and rhythm. LUNGS: Clear to auscultation bilaterally. No respiratory distress. ABDOMEN: Nondistended. Bowel sounds are present throughout. Soft and nontender to palpation. He does not withdraw to palpation deeply throughout. EXTREMITIES: 1+ bilateral lower extremity edema. NEURO: The patient does not follow commands. RECTAL: I did perform digital rectal exam, no significant external abnormalities. On digital exam, I am unable to palpate any solid stool within the rectal vault. There is some soft brownish stool smear on withdrawal of the glove. No bleeding identified. LABORATORY STUDIES: WBC 14.3, hemoglobin 12.0, and platelets 188. INR 1.1. Sodium 142, potassium 4.1, BUN 14, creatinine 1.02, and glucose 138. BNP only 19.7. Troponin negative. LFTs all normal. Lipase only 4. Lactic acid only 1.2. COVID PCR was positive. IMAGING STUDIES: Lower extremity ultrasound shows no evidence of DVT. Brain CT shows no acute processes. Chest x-ray showed pacemaker, no acute processes. CTA of the chest showed no evidence of pulmonary embolus. He does have gallstones. CT of the abdomen and pelvis without contrast showed bilateral displaced femoral head fractures. Normal appearing liver, pancreas, spleen, and appendix. There was rectal fecal impaction with some distention of the rectum with stool and some minimal circumferential thickening in the area. Abdominal x-ray from this afternoon shows no obstructive bowel gas pattern. No significant stool. ASSESSMENT AND PLAN: 1. Rectal fecal impaction, appears to be resolved already with treatment with Fleet Enemas and Dulcolax suppositories. 2. Chronic constipation. With his Parkinson's, he is certainly at risk for recurrent fecal impaction episodes. Maintain a good bowel regimen. Would recommend he be on at least MiraLAX 17 g daily as well as docusate. Dulcolax suppositories can be continued on a p.r.n. basis. 3. COVID-19. The patient is under isolation, appears to have minimal respiratory symptoms. I really do not have any concern for significant gastrointestinal bleeding. The patient is not a good candidate for any endoscopic examination. GI is going to sign off. Please call back anytime with questions or concerns. Job ID: [id number]
[2020-05-03] MEDS: Pantoprazole 40 MG VIAL IVP SCH (21:07)
[2020-05-04] MEDS: metroNIDAZOLE 500 MG in Premix Bag 1 BAG IVPB SCH ×3 (05:08→22:36)
[2020-05-04] MEDS: Bisacodyl 10 MG SUPP PR SCH ×3 (05:09→22:17)
[2020-05-04] MEDS: Sodium Chloride 0.9% 1,000 ML IV SCH ×2 (07:38→17:06)
[2020-05-04] MEDS: Polyethylene Glycol 3350 17 GM Packet PO SCH (07:58)
[2020-05-04] MEDS: Enoxaparin Sodium 40 MG/0.4 ML SYRINGE SC SCH (07:58)
[2020-05-04] MEDS: Pantoprazole 40 MG VIAL IVP SCH ×2 (07:58→19:53)
[2020-05-04] MEDS: Digoxin 0.125 MG TAB PO SCH (07:59)
[2020-05-04] MEDS: Carbidopa/Levodopa CR 50-200 mg Tablet PO SCH ×4 (07:59→21:10)
[2020-05-04] MEDS: Aspirin Chewable 81 MG TAB PO SCH (07:59)
[2020-05-04] MEDS: Primidone 250 MG TAB PO SCH ×2 (07:59→21:10)
[2020-05-04] MEDS: Ondansetron PF 4 MG/2 ML Vial IVP PRN (08:00)
[2020-05-04] MEDS: Acetaminophen 650 MG Suppository PR PRN ×2 (08:00→19:52)
[2020-05-04] MEDS: Divalproex Sodium 125 mg Sprinkle Capsule PO SCH ×2 (08:01→21:10)
--- NOTE | 2020-05-04 08:35 | PDOC.HOSPP ---
- Subjective Encounter Date: 05/04/20 Encounter Time: 08:33 Subjective: no appropriate response to verbal stimuli - Objective Vital Signs & Weight: Vital Signs (12 hours) Temp Pulse Resp BP Pulse Ox 05/04/20 07:59 85 05/04/20 05:49 97 05/04/20 03:00 96.9 F L 85 16 135/63 97 I&O: 05/03/20 05/04/20 05/05/20 06:59 06:59 06:59 Intake Total 1000 1200 Balance 1000 1200 Result Diagrams: 05/03/20 17:38 05/03/20 06:07 Additional Labs: Accuchecks 05/04/20 05/03/20 05/03/20 04:34 19:49 16:42 POC Glucose 180 H 198 H 215 H Hospitalist ROS - Medication Medications: Active Medications Generic Name Dose Route Start Last Admin Trade Name Freq PRN Reason Stop Dose Admin Acetaminophen 650 mg 05/02/20 15:06 05/04/20 08:00 Acetaminophen 650 Mg Suppository [place] 650 mg Q4H PRN Administration Headache/Fever/Mild Pain (1-3) Aspirin 81 mg 05/03/20 09:00 05/04/20 07:59 Aspirin Chewable 81 Mg Tab PO 81 mg DAILY HERMINIA Administration Bisacodyl 10 mg 05/02/20 22:00 05/04/20 05:09 Bisacodyl 10 Mg Supp [place] 10 mg Q8HR HERMINIA Administration Carbidopa/Levodopa 0.5 tab 05/02/20 17:00 05/04/20 07:59 Carbidopa/Levodopa Cr 50-200 Mg Tablet PO 0.5 tab QID HERMINIA Administration Digoxin 0.125 mg 05/03/20 09:00 05/04/20 07:59 Digoxin 0.125 Mg Tab PO 0.125 mg DAILY HERMINIA Administration Divalproex Sodium 250 mg 05/02/20 21:00 05/04/20 08:01 Divalproex Sodium 125 Mg Sprinkle Capsule PO Not Given BID HERMINIA Enoxaparin Sodium 40 mg 05/03/20 09:00 05/04/20 07:58 Enoxaparin Sodium 40 Mg/0.4 Ml Syringe SC 40 mg 0900 HERMINIA Administration Ceftriaxone Sodium 1 gm/ 100 mls @ 200 mls/hr 05/02/20 16:00 05/03/20 15:14 Sodium Chloride IVPB 100 mls Q24HR HERMINIA Administration Sodium Chloride 1,000 mls @ 100 mls/hr 05/02/20 15:06 05/04/20 07:38 Normal Saline 0.9% IV Not Given .Q10H HERMINIA Metronidazole 500 mg/ Device 100 mls @ 100 mls/hr 05/02/20 22:00 05/04/20 05:08 IVPB 100 mls Q8HR HERMINIA Administration Mirtazapine 15 mg 05/02/20 21:00 05/03/20 20:00 Mirtazapine 15 Mg Tab PO Not Given HS HERMINIA Ondansetron HCl 4 mg 05/02/20 15:06 05/04/20 08:00 Ondansetron Pf 4 Mg/2 Ml Vial IVP 4 mg Q6H PRN Administration Nausea/Vomiting Oxybutynin Chloride 10 mg 05/02/20 21:00 05/03/20 20:00 Oxybutynin Er 5 Mg Tab PO Not Given HS HERMINIA Pantoprazole Sodium 40 mg 05/03/20 21:00 05/04/20 07:58 Pantoprazole 40 Mg Vial IVP 40 mg Q12HR HERMINIA Administration Polyethylene Glycol 17 gm 05/03/20 09:00 05/04/20 07:58 Polyethylene Glycol 3350 17 Gm Packet PO 17 gm DAILY HERMINIA Administration Primidone 250 mg 05/02/20 21:00 05/04/20 07:59 Primidone 250 Mg Tab PO 250 mg BID HERMINIA Administration Sertraline HCl 100 mg 05/03/20 09:00 05/04/20 07:59 Sertraline Hcl 100 Mg Tab PO 100 mg DAILY HERMINIA Administration Sodium Chloride 10 ml 05/03/20 09:00 05/04/20 08:01 Flush - Normal Saline 10 Ml Syringe IVF 10 ml Q12HR HERMINIA Administration - Exam General Appearance: awake alert Neck: no JVD Heart: irregular Respiratory: CTAB, no wheezes Gastrointestinal: soft, normal bowel sounds Extremities: no edema Hosp A/P (1) Acute metabolic encephalopathy Code(s): G93.41 - METABOLIC ENCEPHALOPATHY Status: Acute (2) COVID-19 virus infection Code(s): U07.1 - COVID-19 Status: Acute (3) Moderate dehydration Code(s): E86.0 - DEHYDRATION Status: Acute (4) HTN (hypertension) Code(s): I10 - ESSENTIAL (PRIMARY) HYPERTENSION Status: Chronic Qualifiers: Hypertension type: essential hypertension Qualified Code(s): I10 - Essenti al (primary) hypertension (5) Fracture of femoral neck, left, closed Code(s): S72.002A - FRACTURE OF UNSP PART OF NECK OF LEFT FEMUR, INIT Status: Acute Qualifiers: Fracture healing: with nonunion (6) Parkinson disease Code(s): G20 - PARKINSON'S DISEASE Status: Acute (7) DM type 2 (diabetes mellitus, type 2) Status: Acute Qualifiers: Diabetes mellitus fpc insulin use: with exterminator helper termite use (8) CAD (coronary artery disease) Code(s): I25.10 - ATHSCL HEART DISEASE OF [place] CORONARY ARTERY W/O ANG PCTRS Status: Acute Qualifiers: Coronary Disease-Associated Artery/Lesion type: [place] artery [place] vs. transplanted heart: [place] heart Associated angina: without angina Qualified Code(s): I25.10 - Atherosclerotic heart disease of [place] coronary artery without angina pectoris - Plan acute encephalopathy. no improvement no intake, etc cont iv fluids, recall palliative care for hospice if possible
[2020-05-04] MEDS: cefTRIAXone\\ROCEPHIN 1 GM in Sodium Chloride 0.9% 100 ML IVPB SCH (16:00)
[2020-05-04] MEDS: Oxybutynin ER 5 MG TAB PO SCH (21:10)
[2020-05-04] MEDS: Mirtazapine 15 MG TAB PO SCH (21:10)
[2020-05-05] MEDS: Sodium Chloride 0.9% 1,000 ML IV SCH ×2 (02:31→13:40)
[2020-05-05] MEDS: Bisacodyl 10 MG SUPP PR SCH ×3 (05:32→22:02)
[2020-05-05] MEDS: metroNIDAZOLE 500 MG in Premix Bag 1 BAG IVPB SCH ×2 (05:33→13:55)
[2020-05-05] MEDS: Aspirin Chewable 81 MG TAB PO SCH (08:41)
[2020-05-05] MEDS: Carbidopa/Levodopa CR 50-200 mg Tablet PO SCH ×4 (08:46→22:01)
[2020-05-05] MEDS: Divalproex Sodium 125 mg Sprinkle Capsule PO SCH ×2 (08:47→22:01)
[2020-05-05] MEDS: Digoxin 0.125 MG TAB PO SCH (08:47)
[2020-05-05] MEDS: Primidone 250 MG TAB PO SCH ×2 (08:48→22:01)
[2020-05-05] MEDS: Polyethylene Glycol 3350 17 GM Packet PO SCH (08:48)
[2020-05-05] MEDS: Enoxaparin Sodium 40 MG/0.4 ML SYRINGE SC SCH (08:50)
[2020-05-05] MEDS: Pantoprazole 40 MG VIAL IVP SCH ×2 (08:50→21:59)
--- NOTE | 2020-05-05 10:28 | PDOC.PALCO ---
Palliative Care Consult - Consult Details Requesting Physician: Dr Argueta Reason for Consult: complex decision-making - Pertinent HPI 75 year old man who has resided in a [facility] facility the past 10 years. He has no MPOA/surrogate decision maker. He was [facility] from the [facility] secondary to continued decrease in intake, and increase in altered mental status. Covid +. He was found to have significant fecal impaction, bilateral displaced femoral head fractures, but not a candidate for surgery. Admitted for medical management. Total assist for all ADL. - Pertinent PMH Bilateral hip Fx, compression fractures, Atrial Fib/Chronic in nature, DM2, Depression , Demential, Parkinsons - Social History Smoking Status: Unknown if ever smoked Smoking: no tobacco exposure Alcohol Use: none Drug Use History: none Living Situation: [facility] resident - Medications MAR Reviewed: Yes - Allergies Allergies/Adverse Reactions: Allergies Allergy/AdvReac Type Severity Reaction Status Date / Time Penicillins Allergy Verified 08/17/19 15:29 mushrooms Allergy Uncoded 08/17/19 15:29 pork Allergy Uncoded 08/17/19 15:29 - Subjective Aphagic, non participatory in assessment - ROS Non Response: due to mental status - Objective Vital Signs: Vital Signs - Most Recent Temp Pulse Resp BP Pulse Ox 97.9 F 80 18 124/59 L 96 05/05/20 08:00 05/05/20 08:47 05/05/20 08:00 05/05/20 08:00 05/05/20 08:00 Palliative Performance Scale: 20 - Physical Exam Constitutional: ill appearing HEENT: moist MMs, sclera anicteric Respiratory: unlabored breathing, diminished lung sound Deviation from normal: mildly adventicious to upper lobe Cardiovascular: irregular Gastrointestinal: soft, non-tender Genitourinary: incontinent Musculoskeletal: edema present Skin: cap refill <2 seconds, no rash, fragile - Problem List (1) Palliative care encounter Code(s): Z51.5 - ENCOUNTER FOR PALLIATIVE CARE Current Visit: Yes Status: Acute (2) Acute metabolic encephalopathy Code(s): G93.41 - METABOLIC ENCEPHALOPATHY Current Visit: Yes Status: Acute (3) COVID-19 virus infection Code(s): U07.1 - COVID-19 Current Visit: Yes Status: Acute (4) Nausea and vomiting Code(s): R11.2 - NAUSEA WITH VOMITING, UNSPECIFIED Current Visit: Yes Status: Acute Qualifiers: Vomiting type: unspecified Vomiting Intractability: non-intractable Qualified Code(s): R11.2 - Nausea with vomiting, unspecified (5) FTT (failure to thrive) in adult Current Visit: Yes Status: Chronic (6) HTN (hypertension) Code(s): I10 - ESSENTIAL (PRIMARY) HYPERTENSION Current Visit: Yes Status: Chronic Qualifiers: Hypertension type: essential hypertension Qualified Code(s): I10 - Essential (primary) hypertension - Plan/Recommendations Plan: Palliative Care re consulted for assistance with hospice. Patient has no known family, next of kin no surrogate decision maker. Remains unable to voice needs/communicate decisions Communicated with DON at [facility]. [facility] to evaluate for transition to hospice secondary to continued decline and management of symptoms as disease trajectory continues. Saeid FRANK @ [facility] confirmed receiving eval request for hospice. Dr Argueta to sign OOHDNAR, communicated to Dr Mcadams for second physician signature on OOHDNAR. [30] minutes spent on this encounter with >50% of the time in counseling and coordination of care. Thank you for this very appropriate consult.
[2020-05-05] MEDS: cefTRIAXone\\ROCEPHIN 1 GM in Sodium Chloride 0.9% 100 ML IVPB SCH (15:30)
[2020-05-05 16:49] LABS: Hemoglobin 11.9 g/dL (14.0-18.0); Mean Corpuscular HGB CONC 31.8 g/dL (32.0-36.0); Mean Corpuscular Hemoglobin 30.8 pg (27.0-31.0); Mean Corpuscular Volume 96.6 fL (78.0-98.0); Platelet Count 97 thou/uL (130-400); RBC Distribution Width 13.6 % (11.5-14.5); Red Blood Cell (RBC) Count 3.87 mill/uL (4.70-6.10); White Blood Cell (WBC) Count 6.7 thou/uL (4.8-10.8)
[2020-05-05 16:59] LABS: ALT (SGPT) 13 U/L (8-55); AST (SGOT) 27 U/L (5-34); Albumin 3.1 g/dL (3.4-4.8); Alkaline Phosphatase 92 U/L (40-110); Anion Gap 21 mmol/L (10-20); BUN (Urea Nitrogen) 9 mg/dL (8.4-25.7); Bilirubin, Total 0.2 mg/dL (0.2-1.2); Calc. Creatinine Clearance 0 mL/min (70-130); Calcium 8.4 mg/dL (7.8-10.44); Carbon Dioxide 17 mmol/L (23-31); Chloride 112 mmol/L (98-107); Glucose 182 mg/dL (83-110); Potassium 3.1 mmol/L (3.5-5.1); Protein, Total 6.1 g/dL (5.8-8.1); Sodium 147 mmol/L (136-145)
--- NOTE | 2020-05-05 17:25 | PDOC.HOSPP ---
- Subjective Encounter Date: 05/05/20 Encounter Time: 09:00 Subjective: F/u: COVID, encephalopathy The patient is lethargic and non-verbal. He does not really open his eyes. He does move left leg slightly to command - Objective Vital Signs & Weight: Vital Signs (12 hours) Temp Pulse Resp BP Pulse Ox 05/05/20 08:47 80 05/05/20 08:00 97.9 F 82 18 124/59 L 96 05/05/20 05:33 97.6 F 80 20 146/85 H 96 I&O: 05/04/20 05/05/20 05/06/20 06:59 06:59 06:59 Intake Total 1200 1200 Balance 1200 1200 Result Diagrams: 05/05/20 16:33 05/05/20 16:33 Additional Labs: Accuchecks 05/05/20 05/05/20 05/05/20 16:38 05:43 00:41 POC Glucose 195 H 171 H 189 H 05/04/20 05/04/20 05/03/20 20:13 16:31 11:38 POC Glucose 195 H 169 H 201 H Hospitalist ROS - Review of Systems Constitutional: denies: fever, chills - Medication Medications: Active Medications Generic Name Dose Route Start Last Admin Trade Name Freq PRN Reason Stop Dose Admin Acetaminophen 650 mg 05/02/20 15:06 05/04/20 08:00 Acetaminophen 650 Mg Suppository [place] 650 mg Q4H PRN Administration Headache/Fever/Mild Pain (1-3) Aspirin 81 mg 05/03/20 09:00 05/05/20 08:41 Aspirin Chewable 81 Mg Tab PO Not Given DAILY HERMINIA Bisacodyl 10 mg 05/02/20 22:00 05/05/20 13:56 Bisacodyl 10 Mg Supp [place] Not Given Q8HR HERMINIA Carbidopa/Levodopa 0.5 tab 05/02/20 17:00 05/05/20 16:21 Carbidopa/Levodopa Cr 50-200 Mg Tablet PO Not Given QID HERMINIA Digoxin 0.125 mg 05/03/20 09:00 05/05/20 08:47 Digoxin 0.125 Mg Tab PO Not Given DAILY HERMINIA Divalproex Sodium 250 mg 05/02/20 21:00 05/05/20 08:47 Divalproex Sodium 125 Mg Sprinkle Capsule PO Not Given BID HERMINIA Enoxaparin Sodium 40 mg 05/03/20 09:00 05/05/20 08:50 Enoxaparin Sodium 40 Mg/0.4 Ml Syringe SC 40 mg 0900 HERMINIA Administration Ceftriaxone Sodium 1 gm/ 100 mls @ 200 mls/hr 05/02/20 16:00 05/05/20 15:30 Sodium Chloride IVPB 100 mls Q24HR HERMINIA Administration Metronidazole 500 mg/ Device 100 mls @ 100 mls/hr 05/02/20 22:00 05/05/20 13:55 IVPB 100 mls Q8HR HERMINIA Administration Mirtazapine 15 mg 05/02/20 21:00 05/04/20 21:10 Mirtazapine 15 Mg Tab PO Not Given HS HERMINIA Ondansetron HCl 4 mg 05/02/20 15:06 05/04/20 08:00 Ondansetron Pf 4 Mg/2 Ml Vial IVP 4 mg Q6H PRN Administration Nausea/Vomiting Oxybutynin Chloride 10 mg 05/02/20 21:00 05/04/20 21:10 Oxybutynin Er 5 Mg Tab PO Not Given HS HERMINIA Pantoprazole Sodium 40 mg 05/03/20 21:00 05/05/20 08:50 Pantoprazole 40 Mg Vial IVP 40 mg Q12HR HERMINIA Administration Polyethylene Glycol 17 gm 05/03/20 09:00 05/05/20 08:48 Polyethylene Glycol 3350 17 Gm Packet PO Not Given DAILY HERMINIA Primidone 250 mg 05/02/20 21:00 05/05/20 08:48 Primidone 250 Mg Tab PO Not Given BID HERMINIA Sertraline HCl 100 mg 05/03/20 09:00 05/05/20 08:48 Sertraline Hcl 100 Mg Tab PO Not Given DAILY HERMINIA Sodium Chloride 10 ml 05/03/20 09:00 05/05/20 08:49 Flush - Normal Saline 10 Ml Syringe IVF Not Given Q12HR HERMINIA - Exam General Appearance: NAD, awake alert Eye: PERRL, anicteric sclera ENT: normocephalic atraumatic, no oropharyngeal lesions Neck: no JVD Heart: RRR, no murmur, no gallops, no rubs Respiratory: CTAB, no wheezes, no rales, no ronchi Gastrointestinal: soft, non-tender, non-distended, normal bowel sounds Extremities: no cyanosis, no clubbing, no edema Skin: normal turgor, no lesions, no rashes Hosp A/P - Plan CT brain: no acute process Venous doppler: no DVT Chest X ray: negative CTA thorax: left kidney stone. Cholelithiasis. Cmopression fracture T9, T12, L1. NO PE and no pneumonia Ct abomen: multiple compression fractures in the lumbar spine. Fecal impaction. Bilateral proximal femur fractures This is a 75 year old male with past medical history of COVID who presented to the hospital with with minimal oral intake and some abdominal pain. Acute metabolic encephalopathy possibly from hypernatremia or COVID - sodium up to 147. Will order D5W and repeat BMP tomorrow - CT head shows no stroke - palliative care has been consulted, patient is DNR and likely will go to sNF with hospice Hypokalemia - potassium 3.1, will replace COVID + - on room air, no pneumonia on CT scan. Will monitor Compression fractures of thoracic and lumbar spine - will check vitamiN D level in the morning Anemia - Hb 11, check B12/folate TSH
[2020-05-05] MEDS ORDERED: Dextrose 5% in Water 1,000 ML IV SCH (17:30)
[2020-05-05] MEDS ORDERED: Potassium Chloride 20 MEQ in Premix Bag 1 BAG IVPB SCH (17:45)
[2020-05-05] MEDS: Mirtazapine 15 MG TAB PO SCH (22:01)
[2020-05-05] MEDS: Oxybutynin ER 5 MG TAB PO SCH (22:01)
[2020-05-06] MEDS: metroNIDAZOLE 500 MG in Premix Bag 1 BAG IVPB SCH ×3 (00:19→14:11)
[2020-05-06] MEDS: Bisacodyl 10 MG SUPP PR SCH ×2 (04:59→14:11)
[2020-05-06] MEDS ORDERED: Morphine 2 MG/ML VIAL SLOW IVP SCH (05:30)
[2020-05-06 06:24] LABS: Hemoglobin 10.6 g/dL (14.0-18.0); Mean Corpuscular HGB CONC 33.4 g/dL (32.0-36.0); Mean Corpuscular Hemoglobin 31.6 pg (27.0-31.0); Mean Corpuscular Volume 94.6 fL (78.0-98.0); Mean Platelet Volume 8.8 fL (7.4-10.4); Platelet Count 94 thou/uL (130-400); RBC Distribution Width 13.3 % (11.5-14.5); Red Blood Cell (RBC) Count 3.34 mill/uL (4.70-6.10); White Blood Cell (WBC) Count 5.5 thou/uL (4.8-10.8)
[2020-05-06 06:28] LABS: Anion Gap 17 mmol/L (10-20); BUN (Urea Nitrogen) 10 mg/dL (8.4-25.7); Calc. Creatinine Clearance 0 mL/min (70-130); Calcium 7.8 mg/dL (7.8-10.44); Carbon Dioxide 23 mmol/L (23-31); Chloride 113 mmol/L (98-107); Glucose 200 mg/dL (83-110); Sodium 150 mmol/L (136-145)
[2020-05-06 06:31] LABS: Actual Bicarbonate (HCO3v) 23 mEq/L (22-28); Base Excess -1.1 mEq/L (-2.0 to +3.0); Calcium, Ionized (venous) 1.15 mmol/L (1.16-1.32); Chloride (VBG) 113 mmol/L (98-106); Hemoglobin (Hb) 11.2 g/dL (12.6-17.4); Potassium (VBG) 2.89 mmol/L (3.70-5.30); Sodium 146.6 mmol/L (133-146); pH (venous) 7.41 (7.32-7.43)
[2020-05-06 06:32] LABS: Potassium 2.8 mmol/L (3.5-5.1)
[2020-05-06 06:54] LABS: Thyroid Stimulating Hormone 0.5922 uIU/mL (0.35-4.94)
[2020-05-06] MEDS ORDERED: Potassium Chloride 40 MEQ in Sodium Chloride 0.9% 250 ML 250 ML IVPB SCH (07:15)
[2020-05-06] MEDS: Enoxaparin Sodium 40 MG/0.4 ML SYRINGE SC SCH (07:43)
[2020-05-06] MEDS: Pantoprazole 40 MG VIAL IVP SCH (07:44)
[2020-05-06] MEDS ORDERED: Dextrose 5% in Water 1,000 ML IV SCH (07:55)
[2020-05-06] MEDS: Aspirin Chewable 81 MG TAB PO SCH (08:32)
[2020-05-06] MEDS: Carbidopa/Levodopa CR 50-200 mg Tablet PO SCH ×3 (08:32→16:31)
[2020-05-06] MEDS: Digoxin 0.125 MG TAB PO SCH (08:32)
[2020-05-06] MEDS: Polyethylene Glycol 3350 17 GM Packet PO SCH (08:33)
[2020-05-06] MEDS: Primidone 250 MG TAB PO SCH (08:33)
[2020-05-06] MEDS: Divalproex Sodium 125 mg Sprinkle Capsule PO SCH (08:33)
[2020-05-06 12:04] LABS: ALT (SGPT) 17 U/L (8-55); AST (SGOT) 35 U/L (5-34); Albumin 2.9 g/dL (3.4-4.8); Alkaline Phosphatase 78 U/L (40-110); Anion Gap 16 mmol/L (10-20); BUN (Urea Nitrogen) 10 mg/dL (8.4-25.7); Bilirubin, Total 0.3 mg/dL (0.2-1.2); Calc. Creatinine Clearance 0 mL/min (70-130); Calcium 8.5 mg/dL (7.8-10.44); Carbon Dioxide 26 mmol/L (23-31); Chloride 113 mmol/L (98-107); Glucose 188 mg/dL (83-110); Potassium 3.5 mmol/L (3.5-5.1); Protein, Total 5.9 g/dL (5.8-8.1); Sodium 151 mmol/L (136-145)
[2020-05-06 14:53] VITALS: BMI 22.7
--- NOTE | 2020-05-06 15:29 | PDOC.DS.DS ---
Provider - Provider Date of Admission: 05/02/20 14:19 Date of Discharge: 05/06/20 Admitting Provider: Britney Rodriguez MD Primary Care Physician: Unknown Course - Hospital Course Hospital Course: Discharge diagnoses: 1. Acute metabolic encephalopathy secondary to hypernatremia versus Covid 2. Covid positive 3. Severe dehydration 4. Bilateral proximal femoral fractures 5. Multiple compression fractures of the thoracic and lumbar spine 6. Severe constipation Hospital course: Acute metabolic encephalopathy possibly from hypernatremia or COVID: Patient originally presented with poor p.o. intake, and severe dehydration. He was fo und to have sodium of 140. CT scan of his head showed no evidence of a stroke. Covid test was positive. CTA chest showed no PE or pneumonia but multiple compression fractures of thoracic and lumbar spine. CT of his abdomen showed severe constipation and bilateral proximal femoral fractures. Patient had normal white count on admission but on 05/03 his white count increased to 14.3. Blood and urine cultures were normal. He was started on IV ceftriaxone and Flagyl due to penicillin allergy. He received this for 4 days with no significant improvement in his mental status. His IV fluids were switched to D5W, however his sodium continues to increase. Palliative care was consulted and no family member, friend, next of kin or healthcare proxy was able to be contacted. It was decided to make the patient a DNR and transition to home hospice. [facility] will be [facility] with hosp[facility] services. All outpatient medications have been discontinued since the patient i s unable to swallow any oral medications at this time.. Pertinent Studies: CT brain 05/02: no acute process Venous doppler 05/02: no DVT Chest X ray 05/02: negative CTA thorax 05/02: left kidney stone. Cholelithiasis. Compression fracture T9, T12, L1. 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 Distended urinary bladder. Rectal fecal impaction. Multiple compression fractures in the lumbar spine. Fecal impaction. Abd Xray: Bilateral hip fractures CT brain: No acute process Resuscitation Status: 05/02/20 14:58 Resuscitation Status Routine Resuscitation Status: DNAR: NO Resuscitation Discussed with: has OOH-DNR - Labs Lab Results: 05/06/20 05:56 05/06/20 11:13 Abnormal Lab Results - Last 48 hrs 05/05/20 05:50: VBG pCO2 37.2 L, VBG pO2 177.0 H, VBG O2 Sat (Paulette) 99.1 H, VBG Hematocrit 33.0 L, VBG Hemoglobin 11.2 L, VBG Carboxyhemoglobin 1.7 H, Whole Bld Sodium 146.6 H, Whole Bld Potassium 2.89 L, Whole Bld Chloride 113 H 05/05/20 16:33: Sodium 147 H, Potassium 3.1 L, Chloride 112 H, Carbon Dioxide 17 L, Anion Gap 21 H, Albumin 3.1 L, Albumin/Globulin Ratio 1.0 L 05/05/20 16:33: RBC 3.87 L, Hgb 11.9 L, Hct 37.4 L, MCHC 31.8 L, Plt Count 97 L 05/06/20 05:56: Sodium 150 H, Potassium 2.8 L*, Chloride 113 H 05/06/20 05:56: RBC 3.34 L, Hgb 10.6 L, Hct 31.6 L, MCH 31.6 H, Plt Count 94 L 05/06/20 11:13: Sodium 151 H, Chloride 113 H, AST 35 H, Albumin 2.9 L, Albumin/Globulin Ratio 1.0 L Microbiology - Entire Visit 05/03/20 Unknown Urine Straight Catheter Urine Culture - Final NO GROWTH AT 48 HOURS 05/02/20 16:12 Venous blood - Right Arm Blood Culture - Preliminary NO GROWTH AT 48 HOURS 05/02/20 12:00 Venous blood - Left Hand Blood Culture - Preliminary NO GROWTH AT 48 HOURS - Physical Exam Vitals: Vital Signs (12 hours) Temp Pulse Resp BP Pulse Ox 05/06/20 08:32 87 05/06/20 08:00 98.2 F 82 18 115/58 L 97 05/06/20 05:54 87 26 H 104/54 L 96 05/06/20 05:00 98.3 F 86 30 H 128/83 96 Weight Weight 158 lb 4.8 oz Physical Exam: The patient was seen and examined on the day of discharge. General: Patient's very lethargic. He opens his eyes, but does not follow any commands CVS: Regular rate and rhythm with no murmurs or gallops Lungs: Clear to auscultation bilaterally Abdomen: Positive bowel sounds, soft nontender nondistended Extremities: No edema Problem - Discharge Plan Plan of Treatment: [facility] be discharged to [facility] with home hospice. Consider following up with PCP in a week. If patient's mental status improves then encourage adequate oral intake and resume home medicines - Time spent with Patient (mins): 30 Plan - Discharge Medications Allergies: Penicillins Allergy (Verified 08/17/19 15:29) mushrooms Allergy (Uncoded 08/17/19 15:29) pork Allergy (Uncoded 08/17/19 15:29) - Discharge Instructions Activity:: No Restrictions Nourishment:: Other (Not safe for swallowing) - Follow up Plan Referrals: Unknown,Unknown [Primary Care Provider] - Disposition: HOME Quality - Care Measures CORE MEASURES:: N/A
[2020-05-06] MEDS: cefTRIAXone\\ROCEPHIN 1 GM in Sodium Chloride 0.9% 100 ML IVPB SCH (15:32)
[2020-05-06 16:00] VITALS: BP 124/58; TEMP 97.5
--- NOTE | 2020-05-14 10:36 | EKG ---
Test Reason : Blood Pressure : / mmHG Vent. Rate : 099 BPM Atrial Rate : 099 BPM P-R Int : 178 ms QRS Dur : 156 ms QT Int : 392 ms P-R-T Axes : 068 079 266 degrees QTc Int : 503 ms Electronic ventricular pacemaker Confirmed by PALMA BLISS, WILIAM [place] ([id number]), staff editor MERRICK COON ([id number]) on 05/14/2020 10:35:43 AM Referred By: Confirmed By:WILIAM WALDROP MD
== END 2020-05-06 18:07 | disposition hospice, home (50) | DRG 177 ==
LOC: ERS 10:44 → ERHOLD 14:19 → T4-A 20:44
PROVIDERS: ADMIT Internal Medicine; ATTEND Internal Medicine
PROC: 8E0ZXY6 Isolation (ICD-10-PCS; principal; 2020-05-02)
DX: U07.1 COVID-19 (principal); G93.41 Metabolic encephalopathy; N17.9 Acute kidney failure, unspecified; E87.0 Hyperosmolality and hypernatremia; M84.452K Pathological fracture, left femur, subsequent encounter for fracture with nonunion; M84.451K Pathological fracture, right femur, subsequent encounter for fracture with nonunion; I48.91 Unspecified atrial fibrillation; G47.00 Insomnia, unspecified; E11.9 Type 2 diabetes mellitus without complications; F31.9 Bipolar disorder, unspecified; I50.9 Heart failure, unspecified; E78.00 Pure hypercholesterolemia, unspecified; Z66 Do not resuscitate; G20 Parkinson's disease; Z51.5 Encounter for palliative care; F02.80 Dementia in other diseases classified elsewhere, unspecified severity, without behavioral disturbance, psychotic disturbance, mood disturbance, and anxiety; Z95.0 Presence of cardiac pacemaker; Z87.891 Personal history of nicotine dependence; Z79.899 Other long term (current) drug therapy; Z88.0 Allergy status to penicillin; Z79.4 Long term (current) use of insulin; Z79.51 Long term (current) use of inhaled steroids; E86.0 Dehydration; I11.0 Hypertensive heart disease with heart failure; M19.90 Unspecified osteoarthritis, unspecified site; Z98.42 Cataract extraction status, left eye; F41.9 Anxiety disorder, unspecified; E53.8 Deficiency of other specified B group vitamins; Z91.018 Allergy to other foods; R62.7 Adult failure to thrive; Z68.22 Body mass index [BMI] 22.0-22.9, adult; K56.41 Fecal impaction; I25.10 Atherosclerotic heart disease of native coronary artery without angina pectoris; E87.6 Hypokalemia; D64.9 Anemia, unspecified
CPT/HCPCS: 36415; 36416; 70450; 71045; 71275; 74018; 74176; 80048; 80053; 82306; 82607; 82746; 82805; 83605; 83690; 83880; 84443; 84484; 85025; 85027; 85379; 85610; 85730; 87040; 87086; 93005; 93970; 94760; C9113; J0696; J1650; J2270; J2405; J3480; J3490; J7050; Q9967; U0002

== ENCOUNTER 2021-02-13 10:33 | Inpatient (IN) | payer MEDICARE, MEDICAID ==
[2021-02-13] MEDS ORDERED: Iopamidol-370 76% 500 ML 1 ML ONE (11:11)
[2021-02-13 12:57] LABS: #Eosinphils 0.1 thou/uL (0.0-0.7); #Monocytes 0.4 thou/uL (0.11-0.59); #Neutrophils 5.2 thou/uL (1.40-6.50); %Basophils 0.1 % (0.0-1.0); %Eosinophils 1.8 % (0.0-10.0); %Monocytes 5.6 % (0.0-10.0); %Neutrophils 77.5 % (42.0-75.0); Hemoglobin 10.9 g/dL (14.0-18.0); Mean Corpuscular Hemoglobin 31.9 pg (27.0-31.0); Mean Corpuscular Volume 93.9 fL (78.0-98.0); Mean Platelet Volume 8.7 fL (7.4-10.4); Platelet Count 92 thou/uL (130-400); RBC Distribution Width 12.6 % (11.5-14.5); White Blood Cell (WBC) Count 6.8 thou/uL (4.8-10.8)
[2021-02-13 13:37] LABS: Albumin 3.5 g/dL (3.4-4.8)
[2021-02-13 13:38] LABS: Chloride 102 mmol/L (98-107); Potassium 4.2 mmol/L (3.5-5.1); Sodium 135 mmol/L (136-145)
[2021-02-13 13:39] LABS: Calcium 7.9 mg/dL (7.8-10.44)
[2021-02-13 13:40] LABS: Globulin 2.3 g/dL (2.4-3.5); Glucose 65 mg/dL (83-110); Protein, Total 5.8 g/dL (5.8-8.1)
[2021-02-13 13:41] LABS: Anion Gap 14 mmol/L (10-20); Carbon Dioxide 23 mmol/L (23-31)
[2021-02-13 13:42] LABS: Bilirubin, Total 0.2 mg/dL (0.2-1.2)
[2021-02-13 13:43] LABS: Alkaline Phosphatase 75 U/L (40-110); Calc. Creatinine Clearance 0 mL/min (70-130)
[2021-02-13 13:44] LABS: BUN (Urea Nitrogen) 24 mg/dL (8.4-25.7)
[2021-02-13 13:45] LABS: AST (SGOT) 12 U/L (5-34)
[2021-02-13 13:46] LABS: ALT (SGPT) Less than 7 U/L (8-55)
[2021-02-13] MEDS ORDERED: Dextrose 50% Abboject 50 ML SYRINGE ONE ×2 (13:53→22:45)
[2021-02-13] MEDS ORDERED: HYDROmorphone 0.5 MG/0.5 ML SYRINGE ONE (13:53)
[2021-02-13 14:51] LABS: CKMB 1.4 ng/mL (0-6.6)
[2021-02-13 16:07] LABS: Bacteria/HPF None Seen HPF (None Seen); Bilirubin Negative (Negative); Blood, Urine Negative (Negative); Clarity Clear (Clear); Glucose, Urine (Dipstick) Normal (Negative); Ketone, Urine Negative (Negative); Leukocyte 75 Leu/uL (Negative); Nitrite Negative (Negative); Protein, Urine (Dipstick) Negative (Neg-Trace); RBC/HPF None Seen HPF (0-3); Specific Gravity, Urine 1.012 (1.002-1.036); Squamous Epithelial 0-3 HPF (0-3); Urobilinogen Normal mg/dL (Less than 2)
[2021-02-13] MEDS ORDERED: Enoxaparin Sodium 40 MG/0.4 ML SYRINGE ONE ×2 (16:33→16:54)
[2021-02-13] MEDS ORDERED: Aspirin Chewable 81 MG TAB ONE ×2 (16:33)
[2021-02-13 17:17] LABS: Troponin I 0.251 ng/mL (< 0.028)
[2021-02-13] MEDS ORDERED: Nitroglycerin 0.4 MG TAB (25 Tab Bottle) SL PRN (18:37)
[2021-02-13] MEDS ORDERED: Aspirin Chewable 81 MG TAB PO SCH (18:45)
[2021-02-13] MEDS ORDERED: Insulin Regular 300 UNITS/3 ML VIAL SC PRN ×2 (18:47)
[2021-02-13] MEDS ORDERED: Dextrose 5% in Water 1,000 ML IV PRN (18:47)
[2021-02-13] MEDS ORDERED: Dextrose 50% Abboject 50 ML SYRINGE SLOW IVP PRN (18:47)
[2021-02-13 19:28] LABS: Digoxin 0.65 ng/mL (0.8-2.0)
[2021-02-13] MEDS ORDERED: Atorvastatin Calcium 40 MG TAB PO SCH (21:00)
[2021-02-13] MEDS: Carbidopa/Levodopa 25-100 mg Tablet PO SCH (21:00)
[2021-02-13 21:12] LABS: Troponin I 0.221 ng/mL (< 0.028)
[2021-02-14] MEDS: Sodium Chloride 0.9% 1,000 ML IV SCH ×2 (05:19→11:22)
[2021-02-14] MEDS: Enoxaparin Sodium 80 MG/0.8 ML SYRINGE SC SCH ×2 (08:20→21:00)
[2021-02-14] MEDS: Carbidopa/Levodopa 25-100 mg Tablet PO SCH ×4 (08:29→21:01)
[2021-02-14 09:04] LABS: Cardiac Risk 3.3 (Less than 4.5)
[2021-02-14] MEDS: cefTRIAXone\\ROCEPHIN 1 GM in Sodium Chloride 0.9% 100 ML IVPB SCH (11:24)
[2021-02-14] MEDS ORDERED: GLUCAGON HUMAN RECOMBINANT 1 MG IM PRN (12:16)
[2021-02-14] MEDS ORDERED: HYDROcodone/Acetaminophen 5/325 mg Tablet PO PRN (12:16)
[2021-02-14 12:24] VITALS: BMI 20.7
[2021-02-14 13:36] LABS: SARS-CoV-2 PCR by NAA Not Detected (NotDetected)
[2021-02-14] MEDS: Acetaminophen/Codeine 30-300mg Tablet PO SCH (16:36)
[2021-02-14] MEDS: Gabapentin 300 MG CAP PO SCH ×2 (16:37→21:00)
[2021-02-14] MEDS: Aspirin 81 mg Enteric Coated Tablet PO SCH (21:00)
[2021-02-14] MEDS: Atorvastatin Calcium 20 MG TAB PO SCH (21:00)
[2021-02-14] MEDS: Primidone 250 MG TAB PO SCH (21:00)
[2021-02-14] MEDS: Famotidine 20 MG TAB PO SCH (21:00)
[2021-02-14] MEDS: Oxybutynin ER 5 MG TAB PO SCH (21:04)
[2021-02-14] MEDS: Divalproex Sodium 250 MG (DR) TAB PO SCH (21:04)
[2021-02-15] MEDS: Acetaminophen/Codeine 30-300mg Tablet PO SCH ×6 (00:16→23:55)
[2021-02-15] MEDS: Divalproex Sodium 250 MG (DR) TAB PO SCH ×2 (08:08→20:51)
[2021-02-15] MEDS: Gabapentin 300 MG CAP PO SCH ×3 (08:08→20:51)
[2021-02-15] MEDS: Aspirin 81 mg Enteric Coated Tablet PO SCH (08:08)
[2021-02-15] MEDS: Potassium Chloride 10 MEQ TAB PO SCH (08:08)
[2021-02-15] MEDS: Digoxin 0.125 MG TAB PO SCH (08:08)
[2021-02-15] MEDS: Cholecalciferol 1,000 UNITS (25 MCG) TAB PO SCH (08:08)
[2021-02-15] MEDS: Carbidopa/Levodopa 25-100 mg Tablet PO SCH ×4 (08:09→20:51)
[2021-02-15] MEDS: Famotidine 20 MG TAB PO SCH ×2 (08:09→20:51)
[2021-02-15] MEDS: Mirtazapine 15 MG TAB PO SCH (08:09)
[2021-02-15] MEDS: Folic Acid 1 MG TAB PO SCH (08:09)
[2021-02-15] MEDS: Enoxaparin Sodium 80 MG/0.8 ML SYRINGE SC SCH (08:09)
[2021-02-15] MEDS: Primidone 250 MG TAB PO SCH ×2 (08:25→20:51)
[2021-02-15 11:12] LABS: Anion Gap 12 mmol/L (10-20); BUN (Urea Nitrogen) 13 mg/dL (8.4-25.7); Calc. Creatinine Clearance 87 mL/min (70-130); Calcium 8.3 mg/dL (7.8-10.44); Carbon Dioxide 27 mmol/L (23-31); Chloride 104 mmol/L (98-107); Glucose 87 mg/dL (83-110); Potassium 4.1 mmol/L (3.5-5.1); Sodium 139 mmol/L (136-145)
[2021-02-15 11:16] LABS: #Eosinphils 0.1 thou/uL (0.0-0.7); #Lymphocytes 1.1 thou/uL (1.20-3.40); #Monocytes 0.2 thou/uL (0.11-0.59); #Neutrophils 2.2 thou/uL (1.40-6.50); %Basophils 0.7 % (0.0-1.0); %Eosinophils 1.7 % (0.0-10.0); %Lymphocytes 30.3 % (21.0-51.0); %Monocytes 6.6 % (0.0-10.0); %Neutrophils 60.6 % (42.0-75.0); Hemoglobin 10.7 g/dL (14.0-18.0); Mean Corpuscular HGB CONC 32.4 g/dL (32.0-36.0); Mean Corpuscular Hemoglobin 30.6 pg (27.0-31.0); Mean Corpuscular Volume 94.7 fL (78.0-98.0); Mean Platelet Volume 8.5 fL (7.4-10.4); Platelet Count 76 thou/uL (130-400); Platelet Morphology Comment Appears Decreased; RBC Distribution Width 12.5 % (11.5-14.5); RBC Morphology Normal; White Blood Cell (WBC) Count 3.6 thou/uL (4.8-10.8)
[2021-02-15] MEDS: cefTRIAXone\\ROCEPHIN 1 GM in Sodium Chloride 0.9% 100 ML IVPB SCH (11:46)
[2021-02-15] MEDS: HumuLIN 70/30 (300 UNITS/3 ML VIAL) SC SCH (11:47)
[2021-02-15] MEDS: Atorvastatin Calcium 20 MG TAB PO SCH (20:51)
[2021-02-15] MEDS: Oxybutynin ER 5 MG TAB PO SCH (20:51)
[2021-02-16] MEDS: Acetaminophen/Codeine 30-300mg Tablet PO SCH ×2 (06:16→15:35)
[2021-02-16] MEDS ORDERED: Aspirin 81 mg Enteric Coated Tablet PO SCH (09:00)
[2021-02-16] MEDS ORDERED: Enoxaparin Sodium 40 MG/0.4 ML SYRINGE SC SCH (09:00)
[2021-02-16] MEDS: Gabapentin 300 MG CAP PO SCH ×2 (10:03→15:35)
[2021-02-16] MEDS: Cholecalciferol 1,000 UNITS (25 MCG) TAB PO SCH (10:04)
[2021-02-16] MEDS: Primidone 250 MG TAB PO SCH (10:04)
[2021-02-16] MEDS: Famotidine 20 MG TAB PO SCH (10:05)
[2021-02-16] MEDS: Divalproex Sodium 250 MG (DR) TAB PO SCH (10:05)
[2021-02-16] MEDS: Folic Acid 1 MG TAB PO SCH (10:06)
[2021-02-16] MEDS: Mirtazapine 15 MG TAB PO SCH (10:07)
[2021-02-16] MEDS: HumuLIN 70/30 (300 UNITS/3 ML VIAL) SC SCH (10:07)
[2021-02-16] MEDS: Potassium Chloride 10 MEQ TAB PO SCH (10:08)
[2021-02-16] MEDS: cefTRIAXone\\ROCEPHIN 1 GM in Sodium Chloride 0.9% 100 ML IVPB SCH (10:09)
[2021-02-16] MEDS: Digoxin 0.125 MG TAB PO SCH (10:10)
[2021-02-16] MEDS: Carbidopa/Levodopa 25-100 mg Tablet PO SCH ×2 (10:14→14:35)
[2021-02-16 16:20] VITALS: BP 145/86; TEMP 98.1
== END 2021-02-16 17:50 | DRG 689 ==
LOC: ERS 10:33 → 2SE 16:16
PROVIDERS: ADMIT Internal Medicine; ATTEND Internal Medicine
DX: N39.0 Urinary tract infection, site not specified (principal); I21.A1 Myocardial infarction type 2; Z20.822 Contact with and (suspected) exposure to COVID-19; Z66 Do not resuscitate; Z51.5 Encounter for palliative care; B96.4 Proteus (mirabilis) (morganii) as the cause of diseases classified elsewhere; G20 Parkinson's disease; F02.80 Dementia in other diseases classified elsewhere, unspecified severity, without behavioral disturbance, psychotic disturbance, mood disturbance, and anxiety; G47.00 Insomnia, unspecified; E78.5 Hyperlipidemia, unspecified; E78.00 Pure hypercholesterolemia, unspecified; F31.9 Bipolar disorder, unspecified; I95.9 Hypotension, unspecified; I48.0 Paroxysmal atrial fibrillation; R62.7 Adult failure to thrive; E11.649 Type 2 diabetes mellitus with hypoglycemia without coma; Z88.0 Allergy status to penicillin; Z91.018 Allergy to other foods; Z79.01 Long term (current) use of anticoagulants; Z79.82 Long term (current) use of aspirin; Z79.4 Long term (current) use of insulin; Z79.899 Other long term (current) drug therapy; Z74.01 Bed confinement status; Z68.20 Body mass index [BMI] 20.0-20.9, adult
CPT/HCPCS: 36415; 36416; 71045; 74177; 80048; 80053; 80061; 80162; 81003; 81015; 82553; 83605; 83880; 84484; 85025; 87040; 87077; 87086; 87186; 93005; 93306; J0696; J1170; J1650; J3490; J7050; Q9967; U0003; U0005

== ENCOUNTER 2021-04-27 14:40 | Inpatient (IN) | payer MEDICARE, MEDICAID ==
[2021-04-27] MEDS ORDERED: Vancomycin 1 GM/200 ML BAG ONE (15:14)
[2021-04-27] MEDS ORDERED: cefTRIAXone\\ROCEPHIN 2 GM VIAL ONE (15:14)
[2021-04-27 15:18] LABS: Bilirubin Negative (Negative); Blood, Urine 2+ (Negative); Clarity Extra Turbid (Clear); Glucose, Urine (Dipstick) Normal (Negative); Ketone, Urine Greater than 150 mg/dL (Negative); Leukocyte 500 Leu/uL (Negative); Nitrite Negative (Negative); Protein, Urine (Dipstick) 600 mg/dL (Neg-Trace); Specific Gravity, Urine 1.015 (1.002-1.036); Squamous Epithelial None Seen HPF (0-3); WBC/HPF Greater than 50 HPF (0-3)
[2021-04-27 15:24] LABS: Bacteria/HPF 2+ HPF (None Seen)
[2021-04-27 15:44] LABS: #Lymphocytes 0.7 thou/uL (1.20-3.40); #Monocytes 0.2 thou/uL (0.11-0.59); %Eosinophils 0.5 % (0.0-10.0); %Lymphocytes 7.4 % (21.0-51.0); %Monocytes 2.7 % (0.0-10.0); %Neutrophils 89.4 % (42.0-75.0); Hemoglobin 10.8 g/dL (14.0-18.0); Mean Corpuscular HGB CONC 33.1 g/dL (32.0-36.0); Mean Corpuscular Hemoglobin 32.1 pg (27.0-31.0); Mean Corpuscular Volume 97.2 fL (78.0-98.0); Mean Platelet Volume 8.8 fL (7.4-10.4); Platelet Count 111 thou/uL (130-400); RBC Distribution Width 12.8 % (11.5-14.5); Red Blood Cell (RBC) Count 3.36 mill/uL (4.70-6.10); White Blood Cell (WBC) Count 8.9 thou/uL (4.8-10.8)
[2021-04-27 16:00] LABS: ALT (SGPT) Less than 7 U/L (8-55); AST (SGOT) 12 U/L (5-34); Alkaline Phosphatase 81 U/L (40-110); Anion Gap 28 mmol/L (10-20); BUN (Urea Nitrogen) 20 mg/dL (8.4-25.7); Bilirubin, Total 0.5 mg/dL (0.2-1.2); Calc. Creatinine Clearance 0 mL/min (70-130); Calcium 9.2 mg/dL (7.8-10.44); Carbon Dioxide 18 mmol/L (23-31); Chloride 100 mmol/L (98-107); Globulin 3.2 g/dL (2.4-3.5); Glucose 138 mg/dL (83-110); Lipase 6 U/L (8-78); Potassium 4.4 mmol/L (3.5-5.1); Protein, Total 7.2 g/dL (5.8-8.1); Sodium 142 mmol/L (136-145)
[2021-04-27] MEDS ORDERED: Senokot S 8.6-50 MG TAB PO PRN (16:49)
[2021-04-27] MEDS ORDERED: Acetaminophen 650 MG Suppository PR PRN (16:49)
[2021-04-27] MEDS ORDERED: Ondansetron PF 4 MG/2 ML Vial IVP PRN (16:49)
[2021-04-27] MEDS ORDERED: Acetaminophen 325 MG TAB PO PRN (16:49)
[2021-04-27] MEDS ORDERED: Bisacodyl 10 MG SUPP PR PRN (16:49)
[2021-04-27] MEDS ORDERED: Communication Order-Pharmacy FS PRN (16:49)
[2021-04-27] MEDS ORDERED: Bisacodyl 5 MG TAB PO PRN (16:49)
[2021-04-27] MEDS ORDERED: Ondansetron ODT 4 MG TAB PO PRN (16:49)
[2021-04-27] MEDS ORDERED: Vancomycin 1 GM in Premix Bag 1 BAG IVPB SCH (17:00)
[2021-04-27 17:32] LABS: CKMB 1.8 ng/mL (0-6.6)
[2021-04-27] MEDS: Sodium Chloride 0.9% 1,000 ML IV SCH (19:32)
[2021-04-27] MEDS ORDERED: Vancomycin HCl 500 MG in Sodium Chloride 0.9% 100 ML IVPB SCH (19:45)
[2021-04-27] MEDS ORDERED: Cefepime 2 GM VIAL ONE ×2 (19:46)
[2021-04-27] MEDS ORDERED: Heparin 10,000 UNITS/ 10 ML VIAL ONE (19:48)
[2021-04-27] MEDS: Heparin 5,000 UNITS/ML VIAL SC SCH (20:07)
[2021-04-27] MEDS: Cefepime 2 GM in Sodium Chloride 0.9% 100 ML IVPB SCH (20:26)
[2021-04-27 21:22] LABS: SARS-CoV-2 NAA Rapid Test Not Detected (NotDetected)
[2021-04-27 22:47] VITALS: BMI 20.3
[2021-04-28] MEDS: Sodium Chloride 0.9% 1,000 ML IV SCH ×3 (01:43→20:16)
[2021-04-28] MEDS: Cefepime 2 GM in Sodium Chloride 0.9% 100 ML IVPB SCH ×3 (03:33→20:52)
[2021-04-28] MEDS: Heparin 5,000 UNITS/ML VIAL SC SCH (08:44)
[2021-04-28 08:46] LABS: #Lymphocytes 0.7 thou/uL (1.20-3.40); #Monocytes 0.6 thou/uL (0.11-0.59); %Basophils 0.1 % (0.0-1.0); %Eosinophils 0.1 % (0.0-10.0); %Lymphocytes 4.4 % (21.0-51.0); %Monocytes 3.4 % (0.0-10.0); Mean Corpuscular HGB CONC 32.1 g/dL (32.0-36.0); Mean Corpuscular Hemoglobin 31.5 pg (27.0-31.0); Mean Corpuscular Volume 98.4 fL (78.0-98.0); Mean Platelet Volume 8.7 fL (7.4-10.4); Platelet Count 130 thou/uL (130-400); RBC Distribution Width 12.9 % (11.5-14.5); Red Blood Cell (RBC) Count 2.84 mill/uL (4.70-6.10); White Blood Cell (WBC) Count 16.3 thou/uL (4.8-10.8)
[2021-04-28 08:57] LABS: Lactic Acid 1.1 mmol/L (0.5-2.2)
[2021-04-28 08:59] LABS: Anion Gap 27 mmol/L (10-20); BUN (Urea Nitrogen) 18 mg/dL (8.4-25.7); Calc. Creatinine Clearance 52 mL/min (70-130); Calcium 8.3 mg/dL (7.8-10.44); Carbon Dioxide 11 mmol/L (23-31); Chloride 109 mmol/L (98-107); Glucose 168 mg/dL (83-110); Potassium 3.8 mmol/L (3.5-5.1); Sodium 143 mmol/L (136-145)
[2021-04-28] MEDS ORDERED: Aspirin 325 MG TAB PO SCH (09:00)
[2021-04-28] MEDS ORDERED: Communication Order-Pharmacy FS ONE (09:27)
[2021-04-28 09:32] LABS: CKMB 95.7 ng/mL (0-6.6)
[2021-04-28] MEDS ORDERED: Aspirin 300 MG Suppository PR SCH (10:45)
[2021-04-28] MEDS ORDERED: Enoxaparin Sodium 60 MG/0.6 ML SYRINGE SC SCH ×2 (10:45→21:00)
[2021-04-28 11:05] LABS: Platelet Count 125 thou/uL (130-400)
[2021-04-28] MEDS: Enoxaparin Sodium 60 MG/0.6 ML SYRINGE SC SCH (20:53)
[2021-04-28] MEDS: VANCOMYCIN 1.25 GM/250 ML BAG 1.25 GM in Premix Bag 1 BAG IVPB SCH (20:53)
[2021-04-29] MEDS: Cefepime 2 GM in Sodium Chloride 0.9% 100 ML IVPB SCH ×3 (03:56→20:23)
[2021-04-29] MEDS: Sodium Chloride 0.9% 1,000 ML IV SCH ×2 (03:57→09:26)
[2021-04-29 05:51] LABS: Anion Gap 21 mmol/L (10-20); BUN (Urea Nitrogen) 17 mg/dL (8.4-25.7); Calc. Creatinine Clearance 53 mL/min (70-130); Calcium 8.4 mg/dL (7.8-10.44); Carbon Dioxide 12 mmol/L (23-31); Chloride 115 mmol/L (98-107); Glucose 137 mg/dL (83-110); Potassium 3.4 mmol/L (3.5-5.1); Sodium 145 mmol/L (136-145)
[2021-04-29 07:02] LABS: #Lymphocytes 0.8 thou/uL (1.20-3.40); #Monocytes 0.3 thou/uL (0.11-0.59); #Neutrophils 6.6 thou/uL (1.40-6.50); %Basophils 0.1 % (0.0-1.0); %Eosinophils 0.3 % (0.0-10.0); %Lymphocytes 10.4 % (21.0-51.0); %Monocytes 4.2 % (0.0-10.0); %Neutrophils 85.1 % (42.0-75.0); Hemoglobin 8.7 g/dL (14.0-18.0); Mean Corpuscular HGB CONC 32.8 g/dL (32.0-36.0); Mean Corpuscular Hemoglobin 32.1 pg (27.0-31.0); Mean Platelet Volume 8.7 fL (7.4-10.4); Platelet Count 86 thou/uL (130-400); Platelet Morphology Comment Appears Decreased; RBC Distribution Width 13.1 % (11.5-14.5); White Blood Cell (WBC) Count 7.8 thou/uL (4.8-10.8)
[2021-04-29] MEDS: Aspirin 300 MG Suppository PR SCH (09:25)
[2021-04-29] MEDS: Digoxin 0.125 MG TAB PO SCH (09:25)
[2021-04-29] MEDS: Carbidopa/Levodopa 25-100 mg Tablet PO SCH ×4 (09:25→20:25)
[2021-04-29] MEDS: Folic Acid 1 MG TAB PO SCH (09:26)
[2021-04-29] MEDS: Gabapentin 300 MG CAP PO SCH ×3 (09:26→20:25)
[2021-04-29] MEDS: Enoxaparin Sodium 60 MG/0.6 ML SYRINGE SC SCH ×2 (09:26→20:24)
[2021-04-29] MEDS: Divalproex Sodium 125 mg Sprinkle Capsule PO SCH ×2 (09:26→20:25)
[2021-04-29] MEDS: NS 0.9% w/ 40 MEQ KCL 1,000 ML IV SCH ×2 (14:58→23:01)
[2021-04-29] MEDS: Atorvastatin Calcium 20 MG TAB PO SCH (20:25)
[2021-04-29] MEDS ORDERED: VANCOMYCIN 1.25 GM/250 ML BAG 1.25 GM in Premix Bag 1 BAG IVPB SCH (21:30)
[2021-04-29] MEDS: VANCOMYCIN 1.25 GM/250 ML BAG 1.25 GM in Premix Bag 1 BAG IVPB SCH (21:39)
[2021-04-30] MEDS: Cefepime 2 GM in Sodium Chloride 0.9% 100 ML IVPB SCH ×3 (04:00→20:31)
[2021-04-30 04:50] LABS: Hemoglobin 9.7 g/dL (14.0-18.0); Mean Corpuscular HGB CONC 32.8 g/dL (32.0-36.0); Mean Corpuscular Hemoglobin 31.4 pg (27.0-31.0); Mean Corpuscular Volume 95.7 fL (78.0-98.0); Mean Platelet Volume 8.3 fL (7.4-10.4); Platelet Count 85 thou/uL (130-400); RBC Distribution Width 13.4 % (11.5-14.5); Red Blood Cell (RBC) Count 3.08 mill/uL (4.70-6.10); White Blood Cell (WBC) Count 8.2 thou/uL (4.8-10.8)
[2021-04-30 05:05] LABS: Anion Gap 16 mmol/L (10-20); BUN (Urea Nitrogen) 16 mg/dL (8.4-25.7); Calc. Creatinine Clearance 55 mL/min (70-130); Calcium 8.8 mg/dL (7.8-10.44); Carbon Dioxide 18 mmol/L (23-31); Chloride 118 mmol/L (98-107); Glucose 144 mg/dL (83-110); Potassium 3.3 mmol/L (3.5-5.1); Sodium 149 mmol/L (136-145)
[2021-04-30 05:33] LABS: Band 12 % (5-11); Lymphocytes 14 % (21-51); MDiff Complete? YES; Monocytes 5 % (0-10); Myelocyte 3 % (0-0); Neutrophil 66 % (42-75); Platelet Morphology Comment Appears Decreased
[2021-04-30] MEDS ORDERED: Electrolyte Replacement Protocol 1 EACH FS SCH (07:30)
[2021-04-30] MEDS ORDERED: Electrolyte Replacement Protocol FS PRN (07:45)
[2021-04-30] MEDS ORDERED: Potassium Chloride 40 MEQ in Sodium Chloride 0.9% 250 ML 250 ML IVPB SCH (08:00)
[2021-04-30] MEDS: Enoxaparin Sodium 60 MG/0.6 ML SYRINGE SC SCH ×2 (09:28→21:08)
[2021-04-30] MEDS: Aspirin 300 MG Suppository PR SCH (09:28)
[2021-04-30] MEDS: Carbidopa/Levodopa 25-100 mg Tablet PO SCH ×3 (09:29→20:47)
[2021-04-30] MEDS: Gabapentin 300 MG CAP PO SCH ×3 (09:30→20:48)
[2021-04-30] MEDS: Digoxin 0.125 MG TAB PO SCH (09:30)
[2021-04-30] MEDS: Folic Acid 1 MG TAB PO SCH (09:30)
[2021-04-30] MEDS: Divalproex Sodium 125 mg Sprinkle Capsule PO SCH ×2 (09:30→20:47)
[2021-04-30] MEDS: Dextrose 5 %-0.45 % NaCl 1,000 ML IV SCH ×3 (09:40→23:30)
[2021-04-30] MEDS: Vancomycin 1 GM in Premix Bag 1 BAG IVPB SCH ×2 (11:50→20:31)
[2021-04-30 14:00] LABS: Potassium 3.8 mmol/L (3.5-5.1)
[2021-04-30] MEDS: Atorvastatin Calcium 20 MG TAB PO SCH (20:47)
[2021-05-01] MEDS: Cefepime 2 GM in Sodium Chloride 0.9% 100 ML IVPB SCH ×3 (03:59→21:31)
[2021-05-01] MEDS: Enoxaparin Sodium 60 MG/0.6 ML SYRINGE SC SCH (09:22)
[2021-05-01] MEDS: Vancomycin 1 GM in Premix Bag 1 BAG IVPB SCH ×2 (09:23→23:40)
[2021-05-01] MEDS: Aspirin 300 MG Suppository PR SCH (09:25)
[2021-05-01] MEDS: Carbidopa/Levodopa 25-100 mg Tablet PO SCH ×4 (10:17→21:20)
[2021-05-01] MEDS: Digoxin 0.125 MG TAB PO SCH (10:17)
[2021-05-01] MEDS: Gabapentin 300 MG CAP PO SCH ×3 (10:17→21:20)
[2021-05-01] MEDS: Folic Acid 1 MG TAB PO SCH (10:17)
[2021-05-01] MEDS: Divalproex Sodium 125 mg Sprinkle Capsule PO SCH ×2 (10:17→21:20)
[2021-05-01 13:35] LABS: #Eosinphils 0.1 thou/uL (0.0-0.7); #Lymphocytes 1.1 thou/uL (1.20-3.40); #Monocytes 0.4 thou/uL (0.11-0.59); #Neutrophils 5.3 thou/uL (1.40-6.50); %Basophils 0.3 % (0.0-1.0); %Eosinophils 0.8 % (0.0-10.0); %Lymphocytes 15.7 % (21.0-51.0); %Monocytes 5.2 % (0.0-10.0); Hemoglobin 9.2 g/dL (14.0-18.0); Mean Corpuscular HGB CONC 30.5 g/dL (32.0-36.0); Mean Corpuscular Hemoglobin 29.6 pg (27.0-31.0); Mean Corpuscular Volume 97.3 fL (78.0-98.0); Mean Platelet Volume 9.1 fL (7.4-10.4); Platelet Count 96 thou/uL (130-400); RBC Distribution Width 13.5 % (11.5-14.5); Red Blood Cell (RBC) Count 3.11 mill/uL (4.70-6.10); White Blood Cell (WBC) Count 6.8 thou/uL (4.8-10.8)
[2021-05-01 13:50] LABS: Vancomycin, Trough 43.5 ug/mL
[2021-05-01 13:52] LABS: Anion Gap 12 mmol/L (10-20); BUN (Urea Nitrogen) 19 mg/dL (8.4-25.7); Calc. Creatinine Clearance 54 mL/min (70-130); Calcium 8.5 mg/dL (7.8-10.44); Carbon Dioxide 19 mmol/L (23-31); Chloride 118 mmol/L (98-107); Glucose 217 mg/dL (83-110); Magnesium 1.7 mg/dL (1.6-2.6); Potassium 3.4 mmol/L (3.5-5.1); Sodium 146 mmol/L (136-145)
[2021-05-01] MEDS ORDERED: Magnesium 2 GM/50 ML 2 GM in Premix Bag 1 BAG IVPB SCH (14:00)
[2021-05-01] MEDS ORDERED: Potassium Chloride 20 MEQ TAB PO SCH (14:00)
[2021-05-01 14:22] LABS: Phosphorus Less than 1.0 mg/dL (2.3-4.7)
[2021-05-01] MEDS ORDERED: Potassium Phosphate 30 MMOL in Sodium Chloride 0.9% 500 ML IVPB SCH (16:15)
[2021-05-01] MEDS: Potassium Chloride 20 MEQ in Premix Bag 1 BAG IVPB SCH ×2 (17:00→21:30)
[2021-05-01] MEDS ORDERED: Potassium Chloride 20 MEQ in Premix Bag 1 BAG IVPB SCH (19:15)
[2021-05-01] MEDS: Aspirin 81 mg Enteric Coated Tablet PO SCH (21:19)
[2021-05-01] MEDS: Oxybutynin ER 5 MG TAB PO SCH (21:20)
[2021-05-01] MEDS: Primidone 250 MG TAB PO SCH (21:20)
[2021-05-01] MEDS: Atorvastatin Calcium 20 MG TAB PO SCH (21:20)
[2021-05-01 21:30] LABS: Vancomycin, Trough 36.4 ug/mL
[2021-05-02 03:10] LABS: #Basophils 0.1 thou/uL (0.0-0.2); #Eosinphils 0.1 thou/uL (0.0-0.7); #Lymphocytes 1.1 thou/uL (1.20-3.40); #Monocytes 0.3 thou/uL (0.11-0.59); #Neutrophils 5.1 thou/uL (1.40-6.50); %Basophils 0.8 % (0.0-1.0); %Lymphocytes 16.1 % (21.0-51.0); %Monocytes 4.9 % (0.0-10.0); %Neutrophils 77.1 % (42.0-75.0); Hemoglobin 9.8 g/dL (14.0-18.0); Mean Corpuscular HGB CONC 31.5 g/dL (32.0-36.0); Mean Corpuscular Hemoglobin 32.3 pg (27.0-31.0); Mean Platelet Volume 9.1 fL (7.4-10.4); Platelet Count 106 thou/uL (130-400); RBC Distribution Width 13.7 % (11.5-14.5); Red Blood Cell (RBC) Count 3.04 mill/uL (4.70-6.10); White Blood Cell (WBC) Count 6.6 thou/uL (4.8-10.8)
[2021-05-02 03:39] LABS: Anion Gap 17 mmol/L (10-20); BUN (Urea Nitrogen) 20 mg/dL (8.4-25.7); Calc. Creatinine Clearance 58 mL/min (70-130); Calcium 8.5 mg/dL (7.8-10.44); Carbon Dioxide 12 mmol/L (23-31); Chloride 121 mmol/L (98-107); Glucose 151 mg/dL (83-110); Potassium 4.2 mmol/L (3.5-5.1); Sodium 146 mmol/L (136-145)
[2021-05-02] MEDS: Cefepime 2 GM in Sodium Chloride 0.9% 100 ML IVPB SCH (05:27)
[2021-05-02 08:17] LABS: Vancomycin, Random 27.4 ug/mL (See Comment)
[2021-05-02 08:50] LABS: Phosphorus 1.9 mg/dL (2.3-4.7)
[2021-05-02] MEDS: Aspirin 300 MG Suppository PR SCH (08:54)
[2021-05-02] MEDS: Enoxaparin Sodium 40 MG/0.4 ML SYRINGE SC SCH (08:54)
[2021-05-02] MEDS ORDERED: Vancomycin 1 GM in Premix Bag 1 BAG IVPB SCH (09:00)
[2021-05-02 09:18] LABS: Glucose 221 mg/dL (83-110)
[2021-05-02] MEDS: Digoxin 0.125 MG TAB PO SCH (09:58)
[2021-05-02] MEDS: Carbidopa/Levodopa 25-100 mg Tablet PO SCH ×4 (09:58→20:52)
[2021-05-02] MEDS: Aspirin 81 mg Enteric Coated Tablet PO SCH (09:58)
[2021-05-02] MEDS: Gabapentin 300 MG CAP PO SCH ×3 (09:59→20:53)
[2021-05-02] MEDS: Folic Acid 1 MG TAB PO SCH (09:59)
[2021-05-02] MEDS: Primidone 250 MG TAB PO SCH ×2 (09:59→20:54)
[2021-05-02] MEDS: Divalproex Sodium 125 mg Sprinkle Capsule PO SCH ×2 (09:59→20:53)
[2021-05-02] MEDS ORDERED: Potassium Phosphate 15 MMOL in Sodium Chloride 0.9% 100 ML IVPB SCH (12:00)
[2021-05-02] MEDS ORDERED: Potassium Phosphate 30 MMOL in Sodium Chloride 0.9% 500 ML IVPB SCH (14:00)
[2021-05-02] MEDS ORDERED: Dextrose 50% Abboject 50 ML SYRINGE SLOW IVP PRN (16:53)
[2021-05-02] MEDS ORDERED: Dextrose 5% in Water 1,000 ML IV PRN (16:53)
[2021-05-02] MEDS ORDERED: HumaLOG 300 UNITS/3 ML VIAL SC PRN ×2 (16:53)
[2021-05-02 17:30] LABS: Glucose 182 mg/dL (83-110)
[2021-05-02] MEDS: Oxybutynin ER 5 MG TAB PO SCH (20:52)
[2021-05-02] MEDS: Atorvastatin Calcium 20 MG TAB PO SCH (20:52)
[2021-05-02] MEDS: Dextrose 5 %-0.45 % NaCl 1,000 ML IV SCH ×2 (20:53)
[2021-05-02 21:49] LABS: Vancomycin, Random 24.7 ug/mL (See Comment)
[2021-05-03] MEDS: Dextrose 5 %-0.45 % NaCl 1,000 ML IV SCH (04:44)
[2021-05-03] MEDS ORDERED: Dextrose 5 %-0.45 % NaCl 1,000 ML IV SCH (07:47)
[2021-05-03 08:44] LABS: Glucose 162 mg/dL (83-110)
[2021-05-03 08:51] LABS: Anion Gap 13 mmol/L (10-20); BUN (Urea Nitrogen) 23 mg/dL (8.4-25.7); Calc. Creatinine Clearance 57 mL/min (70-130); Calcium 7.4 mg/dL (7.8-10.44); Carbon Dioxide 15 mmol/L (23-31); Chloride 117 mmol/L (98-107); Glucose 162 mg/dL (83-110); Magnesium 1.8 mg/dL (1.6-2.6); Phosphorus 3.7 mg/dL (2.3-4.7); Potassium 3.7 mmol/L (3.5-5.1); Sodium 141 mmol/L (136-145)
[2021-05-03 09:04] LABS: Vancomycin, Random 23.9 ug/mL (See Comment)
[2021-05-03] MEDS: Enoxaparin Sodium 40 MG/0.4 ML SYRINGE SC SCH (09:10)
[2021-05-03] MEDS: Gabapentin 300 MG CAP PO SCH ×2 (09:10→15:27)
[2021-05-03] MEDS: Digoxin 0.125 MG TAB PO SCH (09:11)
[2021-05-03] MEDS: Carbidopa/Levodopa 25-100 mg Tablet PO SCH ×2 (09:11→13:42)
[2021-05-03] MEDS: Folic Acid 1 MG TAB PO SCH (09:11)
[2021-05-03] MEDS: Primidone 250 MG TAB PO SCH (09:11)
[2021-05-03] MEDS: Divalproex Sodium 125 mg Sprinkle Capsule PO SCH (09:11)
[2021-05-03] MEDS: Aspirin 300 MG Suppository PR SCH (09:11)
[2021-05-03] MEDS ORDERED: Magnesium 2 GM/50 ML 2 GM in Premix Bag 1 BAG IVPB SCH (09:45)
[2021-05-03 12:00] VITALS: BP 96/58; TEMP 97.3
== END 2021-05-03 14:45 | DRG 871 ==
LOC: ERS 14:40 → ERHOLD 16:56 → 2NO 21:55
PROVIDERS: ADMIT Internal Medicine; ATTEND Internal Medicine
DX: A41.02 Sepsis due to Methicillin resistant Staphylococcus aureus (principal); G93.41 Metabolic encephalopathy; Z20.822 Contact with and (suspected) exposure to COVID-19; Z66 Do not resuscitate; Z51.5 Encounter for palliative care; I21.A1 Myocardial infarction type 2; N30.00 Acute cystitis without hematuria; E87.1 Hypo-osmolality and hyponatremia; N17.9 Acute kidney failure, unspecified; R65.20 Severe sepsis without septic shock; I11.0 Hypertensive heart disease with heart failure; I25.10 Atherosclerotic heart disease of native coronary artery without angina pectoris; R13.10 Dysphagia, unspecified; R62.7 Adult failure to thrive; I44.7 Left bundle-branch block, unspecified; E83.39 Other disorders of phosphorus metabolism; I50.9 Heart failure, unspecified; I48.0 Paroxysmal atrial fibrillation; G47.00 Insomnia, unspecified; E11.9 Type 2 diabetes mellitus without complications; E78.5 Hyperlipidemia, unspecified; E78.00 Pure hypercholesterolemia, unspecified; G20 Parkinson's disease; F02.80 Dementia in other diseases classified elsewhere, unspecified severity, without behavioral disturbance, psychotic disturbance, mood disturbance, and anxiety; F31.9 Bipolar disorder, unspecified; Z79.84 Long term (current) use of oral hypoglycemic drugs; Z79.82 Long term (current) use of aspirin; Z79.4 Long term (current) use of insulin; Z79.899 Other long term (current) drug therapy; Z87.891 Personal history of nicotine dependence; Z68.21 Body mass index [BMI] 21.0-21.9, adult; Z99.3 Dependence on wheelchair; Z95.810 Presence of automatic (implantable) cardiac defibrillator; Z88.0 Allergy status to penicillin; Z91.014 Allergy to mammalian meats; Z91.018 Allergy to other foods
CPT/HCPCS: 0240U; 36415; 36416; 51701; 70450; 71045; 74018; 74176; 74230; 80048; 80053; 80202; 81003; 81015; 82553; 83605; 83690; 83735; 84100; 84484; 85025; 87040; 87077; 87086; 87186; 93005; 93010; 96365; 96367; J0692; J0696; J1642; J1644; J1650; J3370; J3475; J3480; J3490; J7030; J7042; J7050

== ENCOUNTER 2021-05-26 13:45 | Inpatient (IN) | payer MEDICARE, MEDICAID ==
[2021-05-26] MEDS ORDERED: Dextrose 50% Abboject 50 ML SYRINGE ONE (16:02)
[2021-05-26 17:15] LABS: #Lymphocytes 0.7 thou/uL (1.20-3.40); #Monocytes 0.5 thou/uL (0.11-0.59); #Neutrophils 5.3 thou/uL (1.40-6.50); %Basophils 0.1 % (0.0-1.0); %Eosinophils 0.3 % (0.0-10.0); %Lymphocytes 10.7 % (21.0-51.0); %Monocytes 7.9 % (0.0-10.0); Mean Corpuscular HGB CONC 32.5 g/dL (32.0-36.0); Mean Corpuscular Hemoglobin 30.6 pg (27.0-31.0); Mean Corpuscular Volume 94.2 fL (78.0-98.0); Mean Platelet Volume 9.1 fL (7.4-10.4); Platelet Count 99 thou/uL (130-400); RBC Distribution Width 13.2 % (11.5-14.5); Red Blood Cell (RBC) Count 3.25 mill/uL (4.70-6.10); White Blood Cell (WBC) Count 6.6 thou/uL (4.8-10.8)
[2021-05-26 17:31] LABS: ALT (SGPT) Less than 7 U/L (8-55); AST (SGOT) 16 U/L (5-34); Albumin 3.2 g/dL (3.4-4.8); Alkaline Phosphatase 60 U/L (40-110); Anion Gap 14 mmol/L (10-20); BUN (Urea Nitrogen) 10 mg/dL (8.4-25.7); Bilirubin, Total 0.3 mg/dL (0.2-1.2); Calc. Creatinine Clearance 0 mL/min (70-130); Calcium 8.4 mg/dL (7.8-10.44); Carbon Dioxide 27 mmol/L (23-31); Chloride 100 mmol/L (98-107); Glucose 65 mg/dL (83-110); Potassium 3.7 mmol/L (3.5-5.1); Protein, Total 6.2 g/dL (5.8-8.1); Sodium 137 mmol/L (136-145)
[2021-05-26 18:30] LABS: Magnesium 1.4 mg/dL (1.6-2.6)
[2021-05-26] MEDS ORDERED: Bisacodyl 5 MG TAB PO PRN (18:52)
[2021-05-26] MEDS ORDERED: Senokot S 8.6-50 MG TAB PO PRN (18:52)
[2021-05-26] MEDS ORDERED: Acetaminophen 325 MG TAB PO PRN (18:52)
[2021-05-26] MEDS ORDERED: Ondansetron PF 4 MG/2 ML Vial IVP PRN (18:52)
[2021-05-26] MEDS ORDERED: hydrALAZINE 20 MG/ML VIAL SLOW IVP PRN (18:59)
[2021-05-26] MEDS ORDERED: Enoxaparin Sodium 40 MG/0.4 ML SYRINGE SC SCH (19:00)
[2021-05-26] MEDS ORDERED: Magnesium Sulfate 4 GM in Sodium Chloride 0.9% 250 ML 250 ML IVPB SCH ×2 (19:45→22:30)
[2021-05-26] MEDS ORDERED: DEXTROSE 10% IV SCH (20:00)
[2021-05-26] MEDS ORDERED: WATER IV SCH (20:00)
[2021-05-26] MEDS ORDERED: POTASSIUM PHOSPHATE IV SCH (20:00)
[2021-05-26 20:46] VITALS: BMI 21.9
[2021-05-26] MEDS ORDERED: Non-Formulary Item 1 EACH (Divalproex [Depakote] 125 MG Tab) PO SCH (21:00)
[2021-05-26] MEDS ORDERED: Non-Formulary Item 1 EACH (Oxybutynin Chloride [Oxybutynin Chloride Er] 10 MG Tab.Er.24) PO SCH (21:00)
[2021-05-26] MEDS ORDERED: Electrolyte Replacement Protocol 1 EACH FS SCH (21:15)
[2021-05-26] MEDS: Oxybutynin ER 5 MG TAB PO SCH (22:15)
[2021-05-26] MEDS: Famotidine 20 MG TAB PO SCH (22:15)
[2021-05-26] MEDS: Atorvastatin Calcium 20 MG TAB PO SCH (22:15)
[2021-05-26] MEDS: Carbidopa/Levodopa 25-100 mg Tablet PO SCH (22:15)
[2021-05-26] MEDS: Primidone 250 MG TAB PO SCH (22:59)
[2021-05-26] MEDS: Divalproex Sodium 250 MG (DR) TAB PO SCH (22:59)
[2021-05-27 07:07] LABS: ALT (SGPT) Less than 7 U/L (8-55); AST (SGOT) 14 U/L (5-34); Albumin 2.9 g/dL (3.4-4.8); Alkaline Phosphatase 54 U/L (40-110); Anion Gap 12 mmol/L (10-20); BUN (Urea Nitrogen) 9 mg/dL (8.4-25.7); Bilirubin, Total 0.3 mg/dL (0.2-1.2); Calc. Creatinine Clearance 76 mL/min (70-130); Calcium 8.1 mg/dL (7.8-10.44); Carbon Dioxide 29 mmol/L (23-31); Chloride 99 mmol/L (98-107); Globulin 2.8 g/dL (2.4-3.5); Glucose 182 mg/dL (83-110); Potassium 3.8 mmol/L (3.5-5.1); Protein, Total 5.7 g/dL (5.8-8.1); Sodium 136 mmol/L (136-145)
[2021-05-27 07:15] LABS: Hemoglobin A1c 5.1 % (4.0-6.0)
[2021-05-27 07:22] LABS: #Lymphocytes 0.7 thou/uL (1.20-3.40); #Monocytes 0.3 thou/uL (0.11-0.59); #Neutrophils 4.4 thou/uL (1.40-6.50); %Basophils 0.4 % (0.0-1.0); %Eosinophils 0.6 % (0.0-10.0); %Lymphocytes 13.2 % (21.0-51.0); %Monocytes 5.7 % (0.0-10.0); %Neutrophils 80.1 % (42.0-75.0); Mean Corpuscular HGB CONC 32.4 g/dL (32.0-36.0); Mean Corpuscular Hemoglobin 30.6 pg (27.0-31.0); Mean Corpuscular Volume 94.3 fL (78.0-98.0); Mean Platelet Volume 9.9 fL (7.4-10.4); Platelet Count 68 thou/uL (130-400); RBC Distribution Width 13.1 % (11.5-14.5); Red Blood Cell (RBC) Count 2.93 mill/uL (4.70-6.10); White Blood Cell (WBC) Count 5.5 thou/uL (4.8-10.8)
[2021-05-27 08:07] LABS: SARS-CoV-2 NAA Rapid Test Not Detected (NotDetected)
[2021-05-27] MEDS ORDERED: Furosemide 20 MG TAB PO SCH (09:00)
[2021-05-27] MEDS ORDERED: Enoxaparin Sodium 40 MG/0.4 ML SYRINGE SC SCH (09:00)
[2021-05-27] MEDS: Carbidopa/Levodopa 25-100 mg Tablet PO SCH ×3 (09:03→16:32)
[2021-05-27] MEDS: Folic Acid 1 MG TAB PO SCH (09:03)
[2021-05-27] MEDS: Mirtazapine 15 MG TAB PO SCH (09:03)
[2021-05-27] MEDS: Famotidine 20 MG TAB PO SCH (09:03)
[2021-05-27] MEDS: Primidone 250 MG TAB PO SCH ×2 (10:24→20:14)
[2021-05-27] MEDS: Divalproex Sodium 250 MG (DR) TAB PO SCH ×2 (10:24→20:15)
[2021-05-27] MEDS ORDERED: Dextrose 50% Abboject 50 ML SYRINGE ONE (16:45)
[2021-05-27] MEDS: Oxybutynin ER 5 MG TAB PO SCH (20:14)
[2021-05-27] MEDS: Atorvastatin Calcium 20 MG TAB PO SCH (20:15)
[2021-05-28] MEDS: Folic Acid 1 MG TAB PO SCH (07:49)
[2021-05-28] MEDS: Divalproex Sodium 250 MG (DR) TAB PO SCH ×3 (07:49→21:24)
[2021-05-28] MEDS: Mirtazapine 15 MG TAB PO SCH (07:50)
[2021-05-28] MEDS: Primidone 250 MG TAB PO SCH ×2 (07:50→21:24)
[2021-05-28] MEDS: Atorvastatin Calcium 20 MG TAB PO SCH (21:24)
[2021-05-28] MEDS: Oxybutynin ER 5 MG TAB PO SCH (21:24)
[2021-05-29] MEDS: Folic Acid 1 MG TAB PO SCH ×2 (08:55→11:21)
[2021-05-29] MEDS: Mirtazapine 15 MG TAB PO SCH ×2 (09:48→11:20)
[2021-05-29] MEDS: Divalproex Sodium 250 MG (DR) TAB PO SCH ×3 (09:48→19:57)
[2021-05-29] MEDS: Primidone 250 MG TAB PO SCH ×2 (11:20→19:57)
[2021-05-29] MEDS: Atorvastatin Calcium 20 MG TAB PO SCH (19:56)
[2021-05-29] MEDS: Oxybutynin ER 5 MG TAB PO SCH (19:57)
[2021-05-30] MEDS: Folic Acid 1 MG TAB PO SCH ×2 (09:55→19:39)
[2021-05-30] MEDS: Mirtazapine 15 MG TAB PO SCH ×2 (09:55→19:39)
[2021-05-30] MEDS: Divalproex Sodium 250 MG (DR) TAB PO SCH ×3 (09:56→20:24)
[2021-05-30] MEDS: Primidone 250 MG TAB PO SCH ×3 (09:57→20:24)
[2021-05-30] MEDS: Atorvastatin Calcium 20 MG TAB PO SCH (20:24)
[2021-05-30] MEDS: Oxybutynin ER 5 MG TAB PO SCH (20:24)
[2021-05-31 08:18] VITALS: BP 117/70; TEMP 97.5
[2021-05-31] MEDS: Divalproex Sodium 250 MG (DR) TAB PO SCH ×2 (08:28→08:32)
[2021-05-31] MEDS: Folic Acid 1 MG TAB PO SCH ×2 (08:28→08:32)
[2021-05-31] MEDS: Mirtazapine 15 MG TAB PO SCH ×2 (08:28→08:32)
[2021-05-31] MEDS: Primidone 250 MG TAB PO SCH ×2 (08:29→08:33)
== END 2021-05-31 08:50 | disposition home or self-care (01) | DRG 638 ==
LOC: ERS 13:45 → SURG A 18:22 → OBSVTOIN 05-28 10:09
PROVIDERS: ADMIT Internal Medicine; ATTEND Internal Medicine
DX: E11.649 Type 2 diabetes mellitus with hypoglycemia without coma (principal); E44.0 Moderate protein-calorie malnutrition; Z66 Do not resuscitate; Z20.822 Contact with and (suspected) exposure to COVID-19; G20 Parkinson's disease; F31.9 Bipolar disorder, unspecified; I48.91 Unspecified atrial fibrillation; I50.9 Heart failure, unspecified; G47.00 Insomnia, unspecified; F02.80 Dementia in other diseases classified elsewhere, unspecified severity, without behavioral disturbance, psychotic disturbance, mood disturbance, and anxiety; E83.42 Hypomagnesemia; F41.9 Anxiety disorder, unspecified; E78.5 Hyperlipidemia, unspecified; E78.00 Pure hypercholesterolemia, unspecified; D69.6 Thrombocytopenia, unspecified; D53.9 Nutritional anemia, unspecified; E11.65 Type 2 diabetes mellitus with hyperglycemia; Z88.0 Allergy status to penicillin; Z68.22 Body mass index [BMI] 22.0-22.9, adult; Z91.018 Allergy to other foods; Z79.899 Other long term (current) drug therapy; Z79.82 Long term (current) use of aspirin; Z79.4 Long term (current) use of insulin; Z87.11 Personal history of peptic ulcer disease; Z95.810 Presence of automatic (implantable) cardiac defibrillator; Z87.891 Personal history of nicotine dependence
CPT/HCPCS: 36415; 36416; 80053; 82533; 83036; 83735; 85025; 96372; 96375; G0378; J1650; J3475; J7050; U0002